=== PATIENT | female | born 1930 | race Caucasian/White ===

== ENCOUNTER 2017-12-13 14:55 | Inpatient (IN) | payer MEDICARE ==
[2017-12-13 15:28] LABS: Hemoglobin 6.9 g/dL (12.0-16.0); Mean Corpuscular HGB CONC 29.5 g/dL (32.0-36.0); Mean Corpuscular Hemoglobin 21.3 pg (27.0-31.0); Mean Corpuscular Volume 72.2 fl (81.0-99.0); Mean Platelet Volume 7.1 fL (7.4-10.4); Platelet Count 520 thou/uL (130-400); Red Blood Cell (RBC) Count 3.24 mill/uL (4.20-5.40); White Blood Cell (WBC) Count 18.4 thou/uL (4.8-10.8)
[2017-12-13 15:32] LABS: INR-International Normal Ratio 1.2; PTT 26.7 SEC (22.9-36.1); Prothrombin Time 15.2 SEC (12.0-14.7)
[2017-12-13] MEDS ORDERED: Fentanyl 100 MCG/2 ML VIAL ONE ×2 (15:33→15:35)
--- NOTE | 2017-12-13 15:37 | RAD ---
TWO VIEWS RIGHT TIBIA AND FIBULA 12/13/17 HISTORY: Trauma, fall, leg deformity. AP and lateral views right tibia and fibula demonstrate oblique fractures involving the proximal port ion of the right fibular diaphysis. There is also comminuted fracture involving the proximal diaphysi s of the right tibia. There is lateral angulation of the distal fracture fragments. IMPRESSION: Fracture and displacement of the proximal right fibula and tibia. The tibial fracture appears to be c omminuted. POS: [facility]
--- NOTE | 2017-12-13 15:38 | RAD ---
HISTORY: Fall and leg deformity. AP VIEW PELVIS: 12/13/17 AP view pelvis is obtained. A large amount of stool is seen in the rectum. Some moderate to severe le ft hip osteoarthritic changes seen. Vascular calcifications seen in the abdominal aorta and iliac art eries. No evidence of acute pelvic fractures seen. IMPRESSION: Left hip osteoarthritic changes with no evidence of acute pelvic abnormality seen. POS: [facility]
[2017-12-13 15:39] LABS: ALT (SGPT) 8 U/L (8-55); AST (SGOT) 11 U/L (5-34); Albumin 3.6 g/dL (3.4-4.8); Alkaline Phosphatase 136 U/L (40-150); Anion Gap 17 mmol/L (10-20); BUN (Urea Nitrogen) 23 mg/dL (9.8-20.1); Bilirubin, Total 0.2 mg/dL (0.2-1.2); CK (CPK) 53 U/L (29-168); Calc. Creatinine Clearance 0 mL/min (70-130); Calcium 8.9 mg/dL (7.8-10.44); Carbon Dioxide 21 mmol/L (23-31); Chloride 106 mmol/L (98-107); Estimated GFR-MDRD 40; Globulin 3.1 g/dL (2.4-3.5); Glucose 371 mg/dL (83-110); Potassium 5.1 mmol/L (3.5-5.1); Protein, Total 6.7 g/dL (6.0-8.3); Sodium 139 mmol/L (136-145)
[2017-12-13 15:46] LABS: #Basophils 0.1 thou/uL (0.0-0.2); #Eosinphils 0.5 thou/uL (0.0-0.7); #Lymphocytes 2.5 thou/uL (1.20-3.40); #Monocytes 1.4 thou/uL (0.11-0.59); #Neutrophils 13.9 thou/uL (1.40-6.50); %Basophils 0.6 % (0.0-1.0); %Eosinophils 2.6 % (0.0-10.0); %Lymphocytes 13.4 % (21.0-51.0); %Monocytes 7.5 % (0.0-10.0); %Neutrophils 75.8 % (42.0-75.0); Anisocytosis SLIGHT = 6-15 cells (100X) (0-5/hpf); Hypochromia SLIGHT = 6-15 cells (100X) (0-5/hpf); MDiff Complete? YES; Microcytosis SLIGHT = 6-15 cells (100X) (0-5/hpf); PLT Morphology Comment Appears Increased
[2017-12-13 15:46] LABS: CKMB 1.7 ng/mL (0-6.6); Troponin I Less than 0.010 ng/mL (< 0.028)
--- NOTE | 2017-12-13 16:08 | RAD ---
SINGLE VIEW OF THE CHEST: 12/13/17 COMPARISON: 08/27/11. HISTORY: Fall with right leg deformity. FINDINGS: Single view of the chest shows a cardiomediastinal silhouette which is upper limits of normal in size with atherosclerotic calcifications in the aorta. There is no evidence of consolidation, mass or ple ural effusion. Degenerative changes are seen in the spine. IMPRESSION: No evidence of acute cardiopulmonary disease. POS: [facility]
[2017-12-13 16:38] LABS: Bilirubin Negative (Negative); Blood, Urine Small (Negative); Glucose, Urine (Dipstick) >=1000 mg/dL (Negative); Leukocyte Trace (Negative); Nitrite Positive (Negative); Protein, Urine (Dipstick) Trace mg/dL (Neg-Trace); Urobilinogen 0.2 mg/dL (0.2-1.0); pH, Urine 5.5 (5.0-9.0)
[2017-12-13 16:40] LABS: Clarity Cloudy (Clear)
[2017-12-13 16:41] LABS: Specific Gravity, Urine 1.025 (1.002-1.036)
[2017-12-13 16:55] LABS: Squamous Epithelial 0-3 HPF (0-3); WBC/HPF 21-50 HPF (0-3)
[2017-12-13 16:56] LABS: Bacteria/HPF 3+ HPF (None Seen); Hyaline Casts/LPF 0-3 HYALINE CAST LPF (0-3 Hyaline)
--- NOTE | 2017-12-13 18:07 | RAD ---
TWO VIEWS RIGHT TIBIA AND FIBULA 12/13/17 COMPARISON: 12/13/17 at 3 p.m. HISTORY: Splint placement for tibia and fibula fractures. FINDINGS: two views of the right tibia/fibula were performed. There are fractures of the proximal aspect of the tibia and fibula which are spiral in nature. There is improved alignment of the fractures compared t o the other exam. Surrounding soft tissue swelling is seen. An overlying splint obscures fine bony an d soft tissue edema. There is moderate degenerative change in the right knee. IMPRESSION: Right proximal tibia and fibula fractures. POS: [facility]
[2017-12-13] MEDS ORDERED: Ondansetron HCl/PF 4 MG/2 ML Vial IVP PRN (19:52)
[2017-12-13] MEDS ORDERED: Morphine 4 MG/ML VIAL SLOW IVP PRN (19:52)
[2017-12-13] MEDS ORDERED: cefTRIAXone\\ROCEPHIN 1 GM in Sodium Chloride 0.9% 100 ML IVPB SCH (19:52)
[2017-12-13] MEDS ORDERED: hydrALAZINE 20 MG/ML VIAL SLOW IVP PRN (19:52)
[2017-12-13] MEDS ORDERED: Dextrose 50% Abboject 50 ML SYRINGE SLOW IVP PRN ×2 (19:52)
[2017-12-13] MEDS ORDERED: Ondansetron ODT 4 MG TAB PO PRN (19:52)
[2017-12-13] MEDS ORDERED: Dextrose 5% in Water 1,000 ML IV PRN (19:52)
[2017-12-13] MEDS ORDERED: Nystatin Powder 15 GM BOT TOP PRN (19:52)
[2017-12-13 20:41] LABS: Magnesium 1.8 mg/dL (1.6-2.6); Phosphorus 3.8 mg/dL (2.3-4.7)
--- NOTE | 2017-12-13 20:54 | HP ---
DATE OF ADMISSION: 12/13/2017 REQUESTING PHYSICIAN: Swapnil Mcdaniel M.D. ATTENDING SURGEON: Ally Summers M.D. CONSULTATIONS: Orthopedics, Dr. Harding. HISTORY OF PRESENT ILLNESS: The patient is an 87-year-old woman who withstood a ground lev el fall. She reportedly has a right-sided deficit from a CVA. Previously, it is extremely weak on t he right side. The patient was attempting to get off of her bed when she fell on her right side. Th e patient was brought to the emergency department by ground EMS with a chief complaint of right lower extremity deformity. The patient underwent evaluation and examination, and was noted to have a righ t proximal tibia and fibula fracture. Also, she was noted to have urinary tract infection, elevated white blood cell count, anemia, and was in atrial fibrillation that the daughter said was not new. A t which time, we were asked to admit the patient for admission and orthopedic evaluation and of cours e medical management of these problems. ALLERGIES: JAY INHIBITORS, CODEINE, IODINE, and MORPHINE. Of note, the patient received 2 doses of fentanyl without any type of reaction. CURRENT MEDICATIONS: The daughter does not have her list with her. PAST MEDICAL HISTORY: Atrial fibrillation, type 2 diabetes, hypertension, stroke in 1998 with right- sided deficit and aphasia. The patient was reportedly wheelchair bound, but can stand to transfer. PAST SURGICAL HISTORY: Cholecystectomy, right ankle ORIF. PSYCHIATRIC HISTORY: Depression. SOCIAL HISTORY: The patient has no history of alcohol, drug or tobacco use, and currently lives at [facility] with her daughter. REVIEW OF SYSTEMS: Ten-point review of systems is negative as otherwise stated. PHYSICAL EXAMINATION: VITAL SIGNS: Blood pressure 127/65, heart rate 92, respirations 20, temperature is 98.1, and oxygen saturation is 98% on room air. GENERAL: The patient is lying on the bed. She will follow very simple commands, primarily utilizing her left upper extremity. She is nonverbal and according to the daughter, this is her baseline. HEENT: Head is normocephalic, atraumatic. Eyes are PERRLA bilaterally. Ears are atraumatic without discharge. Nose is atraumatic without discharge. Oropharynx is clear. NECK: Nontender. Trachea is midline. No JVD. CHEST: Has scattered rhonchi bilaterally with moderate inspiratory and expiratory effort. HEART: Irregularly irregular consistent with her atrial fibrillation. Her conduction rate varies be tween 80 and 130, this appeared to be primarily due to pain. ABDOMEN: Soft, flat, nontender with hypoactive bowel sounds. Pelvis is stable. EXTREMITIES: Bilateral upper extremities are neurovascularly intact. The right upper extremity is h eld in a semi-flexed position at the elbow. Right lower extremity shows swelling and slight rotation at the proximal tibia and fibula, but shows a capillary refill of less than 3 seconds and a distal p ulse of 1+. Left lower extremity shows capillary refill less than 3 seconds and 2+ pulses. LABORATORY FINDINGS: White blood cell count 18.4, hemoglobin 6.9, hematocrit 23.4, platelets 520. B METAL COATER 348, CK 53, CK-MB 1.7, troponin less than 0.010. Sodium 139, potassium 5.1, chloride 106, CO2 of 21, BUN 23, creatinine 1.28, glucose 371. LFTs are unremarkable. INR 1.2, PTT 15.2. RADIOGRAPHS: AP chest shows no evidence of acute pulmonary disease. Views of the right tib-fib show s a fracture and displacement of the proximal right fibula and tibia. The tibial fracture appears to be comminuted. There are two views post-reduction, status post splinting, which showed improved ali gnment of the same fractures. AP pelvis shows left hip osteoarthritic changes with no evidence of ac [place] pelvic abnormality. ASSESSMENT: 1. Status post ground level fall. 2. Closed comminuted proximal right tibia and fibula fracture. 3. Urinary tract infection. 4. Anemia. 5. History of cerebrovascular accident with right-sided deficit and aphasia. 6. Atrial fibrillation with variable rate. 7. History of hypertension. 8. Hyperglycemia. PLAN: Plan will be to admit the patient to the Telemetry Service. The patient was receiving 1 unit of packed red blood cells in the emergency department. The patient also received Rocephin. The gaurav ent was placed in a knee immobilizer for splinting of her fracture. The patient was seen in the [facility] department by Dr. Harding, due to the patient's mobility and significant comorbidities, she will not have surgery and this was discussed with the family. The patient will be placed on sliding scal e insulin and we will monitor her labs again in the morning. The assessment, evaluation, examination, laboratory and radiographic findings were all discussed with Dr. Summers in the emergency department.
[2017-12-13] MEDS: Senokot S 8.6-50 MG TAB PO SCH (22:07)
[2017-12-13] MEDS: Sodium Chloride 0.9% 1,000 ML IV SCH (22:08)
[2017-12-13] MEDS: Famotidine 20 MG TAB PO SCH (22:26)
[2017-12-13] MEDS: Acetaminophen 1,000 MG in Premix Bag 1 BAG IVPB SCH (22:29)
[2017-12-13] MEDS ORDERED: Gabapentin 300 MG CAP PO SCH (23:15)
[2017-12-13] MEDS: Insulin Regular 300 UNITS/3 ML VIAL SC PRN (23:35)
[2017-12-14 00:57] VITALS: BMI 29.9
--- NOTE | 2017-12-14 01:13 | HP ---
ADDENDUM: This is an addendum to the H and P dictated by Paulo Kimble, the details of which I have confirmed. Fo r full details, please see his report and shorts. HISTORY OF PRESENT ILLNESS: Ms. Box is an 87-year-old woman who is nonambulatory due to a stroke w ith right hemiparesis. She is able to stand to transfer, however, and when she dropped her viable on the ground earlier today, she thought she could reach over and pick it up; however, her right leg we nt out from underneath her and she fell, breaking her right tibia and fibula. She denies any other i njuries or pain anywhere except for her right leg. She has no amnesia to the events and was not knoc ked out. She has multiple medical problems including the aforementioned stroke and hemiparesis. She has atrial fibrillation, frequent UTIs, diabetes, hypertension. PAST SURGICAL HISTORY: Includes ankle surgery and cholecystectomy in the past. She has multiple adv erse drug reactions to JAY INHIBITORS, CODEINE, IODINE, and MORPHINE, but tolerated fentanyl in the e mergency room. She has expressive aphasia, but does seem to understand the questions and respond, al beit with difficulty. PHYSICAL EXAMINATION: A complete physical examination was performed by myself. She is in a brace fo r her right lower extremity and appears comfortable. No other areas were identified with stigmata of trauma or tenderness to palpation. She does have an irregularly irregular heart rate and her periph eral pulses are diminished. I have reviewed her imaging and agree with the written report. She has a proximal tibia fibula fracture on the right. No abnormalities seen on chest and pelvis. LABORATORY DATA: Reviewed. Her white count is elevated at 18,000 and her UA has positive nitrites a nd trace leukocyte esterase and 21-50 white cells and 3+ bacteria. Glucose is 371. BUN and creatini ne are 23 and 1.28. BNP is mildly elevated at 348. LFTs are normal. On review of past BUN and crea tinine, her creatinine has always been below 1 according to her labs. ASSESSMENT: Proximal right tibia and fibula fractures for which Orthopedics is planning nonoperative management since the patient is nonambulatory. She has multiple other medical issues, which may pro long her hospitalization. She has some acute renal insufficiency and appears to have a UTI. She has been started on antibiotics for this empirically. Her white count is elevated, but she is not clini perry septic. Her daughter states that usually when she gets UTI, she starts to hallucinate, but her mental status has been stable. Urine culture has been ordered and is pending. Palliative care and case management has been consulted as have PT and OT. Her hematocrit was significantly lower than he r baseline at 23 and she is being transfused. For this, the etiology of her anemia is not clear. Sh e denies melena or hematochezia and there is no evidence of significant traumatic blood loss, so I crump spect that this is chronic. Her last H and H was almost a year ago and was 12.5 and 38.4. We may ve ry well opt to get medicine involved in this patient's case since she has several medical issues and her trauma is not likely to be the controlling factor and management for discharge.
--- NOTE | 2017-12-14 01:53 | CON ---
DATE OF CONSULTATION: 12/13/2017 REASON FOR CONSULTATION: Right tib-fib fractures. HISTORY OF PRESENT ILLNESS: She is a pleasant woman who lives with her daughter at home. She was st anding to transfer. She is a nonambulator. She twisted her leg and fell causing a right tibia defor mity. PAST MEDICAL HISTORY: Recorded in the chart. ALLERGIES TO MEDICATIONS: Recorded in the chart. Significant for CODEINE, MORPHINE. PHYSICAL EXAMINATION: Shows elderly woman who is in no distress. Her lungs are very diminished. Aby joy has no palpable pulse in right leg. She has an abrasion over her medial malleolus where there is a screw from a previous ORIF. She has scars from previous ORIF of the ankle. Radiographs show oblique fracture of the proximal third of the tibia and fibula, which appears to be undisplaced. She also has previous ORIF of the ankle, which healed very poorly and bone on bone arth ritis of the right leg. ASSESSMENT: Proximal third, middle third junction tibia fracture and nonambulator with history of st roke and paralysis on the right side, she only stands for pivot transfer. She has very poor bone sean lity. She has diabetes. She has no circulation. She is also at very poor health due to congestive heart failure, diabetes, urinary tract infection as well as cerebrovascular accident. Plans for nono perative treatment because surgery risk is very high with very little potential benefits. This was d iscussed with the daughter. We are going to try to treat her with a removable splint because of her skin conditions and her lack of sensation of foot, very concerned about breakdown inside a cast.
[2017-12-14] MEDS ORDERED: Prevnar 13-Val Conj/PF 0.5 ML SYRINGE IM ONE (02:00)
[2017-12-14] MEDS: Acetaminophen 1,000 MG in Premix Bag 1 BAG IVPB SCH ×4 (02:44→20:17)
[2017-12-14 05:40] LABS: Anion Gap 11 mmol/L (10-20); BUN (Urea Nitrogen) 25 mg/dL (9.8-20.1); Calc. Creatinine Clearance 47 mL/min (70-130); Calcium 8.4 mg/dL (7.8-10.44); Carbon Dioxide 24 mmol/L (23-31); Chloride 109 mmol/L (98-107); Estimated GFR-MDRD 47; Glucose 132 mg/dL (83-110); Magnesium 1.8 mg/dL (1.6-2.6); Phosphorus 3.5 mg/dL (2.3-4.7); Potassium 4.4 mmol/L (3.5-5.1); Sodium 140 mmol/L (136-145)
[2017-12-14 06:05] LABS: Band 1 % (5-11); Hypochromia SLIGHT = 6-15 cells (100X) (0-5/hpf); Lymphocytes 31 % (21-51); MDiff Complete? YES; Mean Corpuscular HGB CONC 31.4 g/dL (32.0-36.0); Mean Corpuscular Hemoglobin 24.3 pg (27.0-31.0); Mean Corpuscular Volume 77.4 fl (81.0-99.0); Mean Platelet Volume 7.9 fL (7.4-10.4); Microcytosis SLIGHT = 6-15 cells (100X) (0-5/hpf); Monocytes 15 % (0-10); Neutrophil 53 % (42-75); Platelet Count 369 thou/uL (130-400); RBC Distribution Width 17.7 % (11.5-14.5); Red Blood Cell (RBC) Count 3.29 mill/uL (4.20-5.40); White Blood Cell (WBC) Count 11.4 thou/uL (4.8-10.8)
[2017-12-14] MEDS: Polyethylene Glycol 3350 17 GM Packet PO SCH ×2 (08:22→08:24)
[2017-12-14] MEDS: Senokot S 8.6-50 MG TAB PO SCH ×2 (08:22→20:17)
[2017-12-14] MEDS: Gabapentin 300 MG CAP PO SCH ×2 (08:22→20:17)
[2017-12-14] MEDS: Sodium Chloride 0.9% 1,000 ML IV SCH (09:15)
--- NOTE | 2017-12-14 12:00 | RAD ---
AP VIEW CHEST: DATE: 12/14/17. COMPARISON: Comparison is made to a previous exam from 12/13/17. FINDINGS: AP view chest demonstrates EKG leads seen over the chest. Ectasia of the aorta is seen. Mild pulmon froilan vascular congestion is seen. No evidence of effusions, pneumonia, or pneumothorax is seen. IMPRESSION: Ectasia of the aorta. Otherwise, unremarkable AP view chest. POS: [facility]
[2017-12-14] MEDS: Insulin Regular 300 UNITS/3 ML VIAL SC PRN ×3 (12:02→20:17)
--- NOTE | 2017-12-14 12:15 | PRG ---
DATE OF SERVICE: 12/14/2017 SUBJECTIVE: This is an 87-year-old female who is a non-ambulator with multiple comorbidities who suf fered a ground-level fall yesterday with a right proximal tib/fib displaced fracture. She was placed in a knee immobilizer for comfort. She has been deemed nonoperative due to comorbidities and non-am bulation status. She is seen today at bedside with Dr. Harding. The patient's family at bedside repo rts that she has been comfortable. Otherwise, no new events. OBJECTIVE: VITAL SIGNS: Temperature 98.3, pulse of 88, respiratory rate 16, blood pressure 108/64. GENERAL: The patient is awake and alert. She is pleasant and cooperative with exam. Family at beds slim. EXTREMITIES: The right lower extremity was examined today. There is a knee immobilizer intact. Her leg is externally rotated. Knee immobilizer was removed and reapplied for comfort reasons. Family was instructed on this. The patient appears comfortable. ASSESSMENT AND PLAN: Right proximal tibial/fibula fracture with displacement. PLAN: We will continue nonoperative care. The patient has a previous CVA with residual right-sided deficits. She is a non-ambulator that will not be bearing weight on this extremity. The patient's f amily has been instructed on comfort care to the right lower extremity. She will follow up with Dr. Harding in the office in 2 months for reevaluation.
[2017-12-14] MEDS ORDERED: Aspirin 81 mg Enteric Coated Tablet PO SCH (12:45)
[2017-12-14] MEDS ORDERED: Magnesium 2 GM/NS 0.9% 100 ML 2 GM in Premix Bag 1 BAG IVPB SCH ×4 (16:00)
[2017-12-14] MEDS ORDERED: cefTRIAXone\\ROCEPHIN 1 GM, Syringe 0.4 ML in Sterile Water 9.6 ML SLOW IVP SCH (17:00)
--- NOTE | 2017-12-14 17:12 | PRG ---
DATE OF SERVICE: 12/14/2017 SUBJECTIVE: The patient is hospital day #2 status post ground level fall, in which she sustained a r ight proximal tibia and fibular displaced fracture. The patient due to her multiple comorbidities to include a right-sided deficit from a CVA and advanced age, we will be treated conservatively and non operatively by the Orthopedic Service. The patient's fractures being treated in a knee immobilizer, which this morning was adjusted and refit by the Orthopedic team. The patient had been initially erika jerardo here on the telemetry unit because she was in atrial fibrillation with rapid ventricular response , most likely due to her dehydration and anemia. The patient was given 1 unit of blood yesterday in the Emergency Department and had IV hydration overnight. The patient was rate controlled. She jovita nued to be in her baseline atrial fibrillation. There were no other events noted. PHYSICAL EXAMINATION: VITAL SIGNS: Temperature is 98.3, heart rate 88, blood pressure 108/64, respirations 16, and oxygen saturation 93% on room air. GENERAL: The patient is sleeping in bed in the telemetry unit. She will open her eyes when verbally stimulated, but otherwise the patient is resting comfortably, does not appear in any distress. LUNGS: Clear to auscultation with moderate inspiratory and expiratory effort. Heart is irregularly irregular consistent with her atrial fibrillation. ABDOMEN: Soft, flat, nontender and with active bowel sounds. EXTREMITIES: Neurovascularly intact x4. LABORATORY DATA: This morning, white blood cell count 11.4, hemoglobin 8.0, hematocrit 25.5, platele ts 369. Sodium 140, potassium 4.4, chloride 109, CO2 of 24, BUN 25, creatinine 1.10, glucose 132, ma gnesium 1.8, phosphorus 3.5. Chest x-ray shows an unremarkable AP view of the chest with some quest ionable mild pulmonary vascular congestion. ASSESSMENT AND PLAN: 1. Status post ground level fall. 2. Right proximal tibia and fibular fracture treated nonoperatively, immobilized in a knee immobiliz er. 3. Urinary tract infection being treated with ceftriaxone. 4. Atrial fibrillation with rapid ventricular response, rate now controlled. 5. Anemia, resolved. Plan will be to continue supportive care and await placement decision. The patient is also going to be evaluated. The family will be consulted by palliative care and we will await their final placemen t decision. The patient will be moved to the surgical floor. We will discontinue her IV fluids and also have speech evaluate the patient to ensure that she is not having any other changes that need to be addressed.
[2017-12-14] MEDS: Famotidine 20 MG TAB PO SCH (20:17)
[2017-12-14] MEDS ORDERED: Gabapentin 300 MG CAP PO SCH (21:00)
[2017-12-15 04:30] LABS: #Basophils 0.1 thou/uL (0.0-0.2); #Eosinphils 0.6 thou/uL (0.0-0.7); #Lymphocytes 2.5 thou/uL (1.20-3.40); #Monocytes 1.7 thou/uL (0.11-0.59); %Basophils 0.8 % (0.0-1.0); %Eosinophils 5.2 % (0.0-10.0); %Lymphocytes 21.2 % (21.0-51.0); %Monocytes 14.2 % (0.0-10.0); %Neutrophils 58.7 % (42.0-75.0); Hemoglobin 8.8 g/dL (12.0-16.0); Mean Corpuscular HGB CONC 32.1 g/dL (32.0-36.0); Mean Corpuscular Hemoglobin 24.8 pg (27.0-31.0); Mean Corpuscular Volume 77.1 fl (81.0-99.0); Mean Platelet Volume 7.1 fL (7.4-10.4); Platelet Count 367 thou/uL (130-400); RBC Distribution Width 17.6 % (11.5-14.5); Red Blood Cell (RBC) Count 3.54 mill/uL (4.20-5.40)
[2017-12-15 04:56] LABS: Anion Gap 11 mmol/L (10-20); BUN (Urea Nitrogen) 22 mg/dL (9.8-20.1); Calc. Creatinine Clearance 48 mL/min (70-130); Calcium 8.4 mg/dL (7.8-10.44); Carbon Dioxide 24 mmol/L (23-31); Chloride 107 mmol/L (98-107); Estimated GFR-MDRD 48; Glucose 144 mg/dL (83-110); Magnesium 2.2 mg/dL (1.6-2.6); Phosphorus 3.2 mg/dL (2.3-4.7); Potassium 4.2 mmol/L (3.5-5.1); Sodium 138 mmol/L (136-145)
[2017-12-15] MEDS: Insulin Regular 300 UNITS/3 ML VIAL SC PRN ×3 (06:13→18:18)
[2017-12-15] MEDS: Nitrofurantoin Monohyd/M-Cryst 100 MG CAP PO SCH ×2 (08:09→21:12)
[2017-12-15] MEDS: Aspirin 81 mg Enteric Coated Tablet PO SCH (08:09)
[2017-12-15] MEDS: Gabapentin 300 MG CAP PO SCH ×2 (08:09→21:12)
[2017-12-15] MEDS: Polyethylene Glycol 3350 17 GM Packet PO SCH (08:17)
[2017-12-15] MEDS: Senokot S 8.6-50 MG TAB PO SCH ×2 (08:17→21:14)
[2017-12-15] MEDS ORDERED: Amiodarone 200 MG TAB PO SCH (09:00)
[2017-12-15] MEDS ORDERED: Metoprolol Tartrate 25 MG TAB PO SCH (10:30)
[2017-12-15] MEDS: Enoxaparin Sodium 30 MG/0.3 ML SYRINGE SC SCH (11:03)
[2017-12-15] MEDS: traMADol HCl 50 MG TAB PO SCH ×3 (11:04→23:28)
[2017-12-15] MEDS: Acetaminophen 500 MG TAB PO SCH ×4 (11:04→23:28)
--- NOTE | 2017-12-15 11:52 | PRG ---
DATE OF SERVICE: 12/15/2017 ATTENDING PHYSICIAN: Bobby Mcgee D.O. SUBJECTIVE: Ms. Box is an 87-year-old female who was admitted on 12/13/2017 after suffering a grou nd level fall resulting in a right proximal tibia and fibular fracture. Upon admission, she was also noted to have urinary tract infection with elevated white blood cell count, anemia and was also in a trial fibrillation, which she has a history of. Orthopedic surgery was consulted for her right leg f racture and they recommended nonoperative treatment given high surgical risk with little potential be nefit. The patient's injury is being treated with removable splint. The patient was also started on metoprolol succinate 12.5 mg daily for rate control. Overnight, however, she was tachycardic. EKG this morning revealed she was in atrial fibrillation with RVR with heart rate to 145. The patient wa s started on a loading dose of amiodarone 400 mg. However, this was soon discontinued per instructio n from Dr. Mcgee. Patient did receive one dose. Her only complaint this morning is some pain which is worse with movement and limiting her ability to do physical therapy. OBJECTIVE: VITAL SIGNS: BP 131/69, heart rate 145, temperature 98.0, respirations 18, O2 sat 95% on room air. GENERAL APPEARANCE: The patient is an elderly adult female with obvious right-sided hemiparesis. Sh e is resting comfortably in bed. She does not appear to be in any acute distress. HEENT: Normocephalic and atraumatic with right-sided weakness and hemiparesis noticeable with speech . RESPIRATORY: Breath sounds are clear to auscultation bilaterally. CARDIOVASCULAR: She has an irregularly irregular rhythm with tachycardia. ABDOMEN: Soft, nontender, nondistended. She has active bowel sounds. EXTREMITIES: She is neurovascularly intact x4 with right-sided weakness. LABORATORY DATA AND IMAGING DATA: Significant for decreased white blood cell count. Today, her whit e blood cells are 12.0 down from 18.4 on 12/13/2017. Her hemoglobin and hematocrit are also stable a t 8.8 and 27.3 respectively. This is up from 8.0 and 25.5 yesterday. Chemistry: Sodium 138, potass ium 4.2, chloride 107, bicarbonate 24, BUN 22, creatinine 1.08, glucose 144, calcium 8.4, phosphorus 3.2, and magnesium 2.2. There are no images to review today. ASSESSMENT: 1. Status post ground level fall. 2. Right proximal tibia and fibular fracture, nonoperative. 3. Urinary tract infection. 4. Atrial fibrillation with rapid ventricular response. 5. Anemia. PLAN: 1. Removal of splint for right proximal tibia and fibular fracture. 2. Continue treatment with Macrobid for urinary tract infection. 3. We will continue to treat her atrial fibrillation with rate control. The patient did receive 400 mg dose of amiodarone this morning as well as 12.5 mg dose of metoprolol succinate. For this reason , further metoprolol was held. Will be started on 25 mg metoprolol tartrate b.i.d. starting this juan manuel pallavi. In the meantime, we will do frequent vital signs checks to make sure that her heart rate is no t getting too low after both amiodarone and metoprolol. 4. Anemia, currently stable after receiving 2 units of blood on 12/13/2017. We will continue to lynne ck hemoglobin and hematocrit and transfuse if her hemoglobin and hematocrit less than 7/21. 5. Palliative Care consult today. 6. Case management following for discharge planning. Patient will likely discharge to [facility] bed. This patient was seen and examined along with Dr. Bobby Mcgee on rounds who agreed with assessment and plan.
[2017-12-15] MEDS: Ferrous Sulfate 325 MG TAB PO SCH (17:34)
[2017-12-15] MEDS: Ascorbic Acid 500 mg Chewable Tablet PO SCH (17:34)
[2017-12-15] MEDS: Famotidine 20 MG TAB PO SCH (21:04)
[2017-12-15] MEDS: Metoprolol Tartrate 25 MG TAB PO SCH (21:12)
--- NOTE | 2017-12-15 23:21 | PRG ---
DATE OF SERVICE: 12/15/2017 SUBJECTIVE: The patient is hospital day #3 status post ground level fall in which she sustained a ri ght proximal tibia and fibula fracture. The patient also was noted to have a urinary tract infection and has a history of paroxysmal atrial fibrillation; which upon admission, was not rate controlled. The patient received 1 unit of blood and the following 24 hours, she was rate controlled. This even ing, her heart rate once again was elevated. Her medications were adjusted to include her beta-block er which seems to slow her rate down to the 90s-105s the maximum. Otherwise, the patient has not had any other issues. She denies chest pain and is tolerating a diet. The patient is awaiting placemen t. Her fracture is being treated nonoperatively and is currently immobilized in a knee immobilizer. PHYSICAL EXAMINATION: VITAL SIGNS: Temperature is 97.6, heart rate 104, blood pressure 110/65, oxygen saturation is 90 on room air. GENERAL: The patient is resting comfortably in bed. She is currently asleep and appears to be in no distress. LUNGS: Clear to auscultation bilaterally. HEART: Irregularly irregular, consistent with her atrial fibrillation. ABDOMEN: Soft and flat with hypoactive bowel sounds. EXTREMITIES: Show capillary refill less than 3 seconds and pulses are 2+. Her right knee immobilize r appears to be in place adequately. ASSESSMENT AND PLAN: 1. Status post ground level fall. 2. Right proximal tibia and fibular fracture. 3. Urinary tract infection. 4. Atrial fibrillation with variable ventricular response. Plan will be to continue supportive care. Currently, we will make no adjustments to her cardiac medi cations. She is on the appropriate antibiotics for her urinary tract infection and we will repeat la bs in the morning and await final placement decision.
[2017-12-16] MEDS: Acetaminophen 500 MG TAB PO SCH ×2 (04:57→11:26)
[2017-12-16] MEDS: Insulin Regular 300 UNITS/3 ML VIAL SC PRN ×2 (06:20→12:39)
[2017-12-16 06:26] LABS: Calcium 8.8 mg/dL (7.8-10.44)
[2017-12-16 06:27] LABS: Band 1 % (5-11); Eosinophils 5 % (0-10); Hemoglobin 8.6 g/dL (12.0-16.0); Hypochromia SLIGHT = 6-15 cells (100X) (0-5/hpf); Lymphocytes 13 % (21-51); MDiff Complete? YES; Mean Corpuscular HGB CONC 31.3 g/dL (32.0-36.0); Mean Corpuscular Hemoglobin 24.3 pg (27.0-31.0); Mean Corpuscular Volume 77.8 fl (81.0-99.0); Mean Platelet Volume 7.3 fL (7.4-10.4); Monocytes 10 % (0-10); Neutrophil 71 % (42-75); Platelet Count 386 thou/uL (130-400); RBC Distribution Width 18.6 % (11.5-14.5); Red Blood Cell (RBC) Count 3.52 mill/uL (4.20-5.40); White Blood Cell (WBC) Count 12.8 thou/uL (4.8-10.8)
[2017-12-16 06:32] LABS: Anion Gap 13 mmol/L (10-20); BUN (Urea Nitrogen) 17 mg/dL (9.8-20.1); Calc. Creatinine Clearance 43 mL/min (70-130); Carbon Dioxide 24 mmol/L (23-31); Chloride 106 mmol/L (98-107); Estimated GFR-MDRD 42; Glucose 237 mg/dL (83-110); Magnesium 1.9 mg/dL (1.6-2.6); Phosphorus 3.4 mg/dL (2.3-4.7); Potassium 4.5 mmol/L (3.5-5.1); Sodium 138 mmol/L (136-145)
[2017-12-16] MEDS: Ascorbic Acid 500 mg Chewable Tablet PO SCH (06:34)
[2017-12-16] MEDS: Ferrous Sulfate 325 MG TAB PO SCH (06:34)
[2017-12-16] MEDS: Nitrofurantoin Monohyd/M-Cryst 100 MG CAP PO SCH (08:42)
[2017-12-16] MEDS: Senokot S 8.6-50 MG TAB PO SCH (08:42)
[2017-12-16] MEDS: Gabapentin 300 MG CAP PO SCH (08:43)
[2017-12-16] MEDS: Polyethylene Glycol 3350 17 GM Packet PO SCH (08:43)
[2017-12-16] MEDS: Aspirin 81 mg Enteric Coated Tablet PO SCH (08:43)
[2017-12-16] MEDS: Enoxaparin Sodium 30 MG/0.3 ML SYRINGE SC SCH (08:43)
[2017-12-16] MEDS ORDERED: Bisacodyl 10 MG SUPP PR SCH (09:00)
[2017-12-16] MEDS ORDERED: Metoprolol Tartrate 25 MG TAB PO SCH ×2 (10:17→21:00)
[2017-12-16] MEDS: Metoprolol Tartrate 25 MG TAB PO SCH (10:41)
[2017-12-16] MEDS: traMADol HCl 50 MG TAB PO SCH (11:26)
[2017-12-16 15:58] VITALS: BP 107/68; TEMP 97.3
--- NOTE | 2017-12-17 11:32 | DIS ---
DATE OF ADMISSION: 12/13/2017 DATE OF DISCHARGE: 12/16/2017 ADMITTING PHYSICIAN: Dr. Summers. DISCHARGING PHYSICIAN: Dr. Mcgee. ADMISSION DIAGNOSES: 1. Status post ground level fall. 2. Closed-comminuted right proximal tibia and fibular fracture. 3. Urinary tract infection. 4. Anemia. 5. History of cerebrovascular accident with right-sided deficit and aphasia. 6. Atrial fibrillation with variable rate. 7. History of hypertension. 8. Hyperglycemia. PROCEDURES PERFORMED: Knee immobilizer for splinting of her fracture. HOSPITAL COURSE: Ms. Box is an 87-year-old female who suffered a ground level fall, landing on her right side. She was brought to the [facility] by ground EMS where she was eval uated and found to have a right proximal tibia and fibular fracture. She was also noted to have urin froilan tract infection, elevated white blood cell count, anemia, and atrial fibrillation that were repor tedly not a new problem. Orthopedic Surgery was consulted and Trauma Services was asked to admit. T he patient had a splint placed on her right leg. Given the patient's baseline immobility, it was fel t that surgical fixation of her leg would not be beneficial. The patient received 1 unit of packed r ed blood cells for her anemia. She was started on antibiotics for her urinary tract infection. Her atrial fibrillation was managed with beta blockers for rate control. She was discharged to [facility] on 12/16/2017 in stable condition. DISCHARGE MEDICATIONS: Include all of her inpatient medications. For details, see the electronic pa dical record. ACTIVITY INSTRUCTIONS: The patient discharged with orthopedic limitations including knee immobilizer on at all times. NOURISHMENT INSTRUCTIONS: The patient discharged on a diabetic diet. THERAPY INSTRUCTIONS: Physical and occupational therapy at the [facility]. FOLLOWUP: The patient is to follow up with her primary care doctor in 7 days. The patient instructe d to follow up with Dr. Harding in 2 months for new x-rays and re-evaluation.
--- NOTE | 2017-12-21 08:37 | EKG ---
Test Reason : Blood Pressure : / mmHG Vent. Rate : 106 BPM Atrial Rate : 076 BPM P-R Int : 000 ms QRS Dur : 096 ms QT Int : 344 ms P-R-T Axes : 000 -59 078 degrees QTc Int : 456 ms Atrial fibrillation with rapid ventricular response Left axis deviation Abnormal ECG When compared with ECG of 22-AUG-2011 07:38, No significant change was found Confirmed by CANDIDO GARAY, POLLY ([id number]) on 12/21/2017 8:37:17 AM Referred By: CORKY VELA Confirmed By:POLLY REY MD
== END 2017-12-16 16:24 | DRG 563 ==
LOC: ERS 14:55 → 2NO 17:47 → SURG A 12-14 16:36
PROVIDERS: ADMIT Surgery; ATTEND Surgery
PROC: 30233N1 Transfusion of Nonautologous Red Blood Cells into Peripheral Vein, Percutaneous Approach (ICD-10-PCS; principal; 2017-12-13)
DX: S82.101A Unspecified fracture of upper end of right tibia, initial encounter for closed fracture (principal); E11.65 Type 2 diabetes mellitus with hyperglycemia; I48.0 Paroxysmal atrial fibrillation; I69.351 Hemiplegia and hemiparesis following cerebral infarction affecting right dominant side; D64.9 Anemia, unspecified; E86.0 Dehydration; F32.9 Major depressive disorder, single episode, unspecified; I10 Essential (primary) hypertension; N39.0 Urinary tract infection, site not specified; W18.30XA Fall on same level, unspecified, initial encounter; Z88.5 Allergy status to narcotic agent; Z88.8 Allergy status to other drugs, medicaments and biological substances; Z91.041 Radiographic dye allergy status; Z51.5 Encounter for palliative care; Z99.3 Dependence on wheelchair; S82.451A Displaced comminuted fracture of shaft of right fibula, initial encounter for closed fracture
CPT/HCPCS: 36415; 36416; 36430; 51701; 71045; 72170; 80048; 80053; 81003; 81015; 82550; 82553; 83735; 83880; 84100; 84484; 85025; 85610; 85730; 86850; 86900; 86901; 87077; 87086; 87186; 93005; 93010; 94640; 96374; A4216; A4353; G0390; G8978-GP-CN; G8979-GP-CL; G8987-GO-CM; G8988-GO-CK; G8996-GN-CH; G8997-GN-CH; J0131; J0696; J1650; J1815; J3010; J3475; J7620; P9016

== ENCOUNTER 2019-05-01 13:44 | Inpatient (IN) | payer MEDICARE ==
[2019-05-01] MEDS ORDERED: Ondansetron PF 4 MG/2 ML Vial IVP PRN (16:18)
[2019-05-01] MEDS ORDERED: Senokot S 8.6-50 MG TAB PO PRN (16:18)
[2019-05-01] MEDS ORDERED: Ondansetron ODT 4 MG TAB PO PRN (16:18)
[2019-05-01] MEDS ORDERED: Bisacodyl 5 MG TAB PO PRN (16:18)
[2019-05-01] MEDS ORDERED: Calcium Carbonate 500 MG ChewTAB PO PRN (16:18)
[2019-05-01] MEDS ORDERED: Acetaminophen 325 MG TAB PO PRN (16:18)
[2019-05-01] MEDS ORDERED: hydrALAZINE 20 MG/ML VIAL SLOW IVP PRN (16:22)
[2019-05-01] MEDS ORDERED: diphenhydrAMINE 25 MG CAP PO PRN (16:22)
--- NOTE | 2019-05-01 17:29 | PDOC.HHP ---
Hospitalist HPI - History of Present Illness AMS and UTI History of Present Illness: 89 F taken to ED at [facility] for evaluation of AMS and been on Cipro for a UTI for the past 6 days. Daughter at the bedside who is the primary caregiver. Reports her mom has been battling a UTI for over a week but could tell this morning that she was not her normal self, was "not quite there" mentally which is common when she gets a UTI. Ms Box follows commands but daughter gave the history. Ms Box lives at home with her daughter and TIERRA. Daughter provides most care and has a nurse come out 3 times a week. She is bed bound after a tibial fracture in 2018. It was not able to be fixed and she has been unable to bear weight on right leg since the fracture. Wears a brief for bladder incontinence. Is able to transfer to a wheelchair with assistance. Daughter reports that since her mother was given fluids and Rocephin the in the ED at [facility] this morning, patient appears more lucid, more interactive and generally looks better. She will be admitted to the hospital for further management. ED Course: Was given fluids, Rocephin, UA labs taken. WBC 18, HGB 8, Hct 26.2, UA positive for +protein, blood, leukocytes, WBC, Bacteria +3, Dilantin level 2.6 Hospitalist ROS - Review of Systems ROS unobtainable: due to mental status (History provided by daughter, Patient follows commands but does not answer questions) - Exam Eye - other findings: conjunctiva pale ENT: dry oral mucosa Neck: supple, no JVD Heart: RRR, normal peripheral pulses Respiratory: CTAB, normal chest expansion Gastrointestinal: soft, non-tender Extremities: no edema Skin: normal turgor, no lesions Neurological: no weakness Musculoskeletal - other findings: right leg externally rotated Hospitalist H&P A/P - Problem (1) Diabetes mellitus Code(s): E11.9 - TYPE 2 DIABETES MELLITUS WITHOUT COMPLICATIONS Status: Chronic (2) Encephalopathy acute Code(s): G93.40 - ENCEPHALOPATHY, UNSPECIFIED Status: Acute (3) UTI (urinary tract infection) Status: Acute (4) Dehydration Code(s): E86.0 - DEHYDRATION Status: Acute - Plan Plan: Allergies: JAY inhibitors, codeine, iodine, morphine MEDS: need to reconciled. Daughter reports she no longer takes meds for HTN Plan: gentle hydration NS 70ml/hr Rocephin 2gm IVPB q24h Blood and urine cultures Duonebs prn for cough/dyspnea DVT/GI prophylaxis Plan coordinated with Dr. Park
[2019-05-01 17:53] LABS: #Basophils 0.1 thou/uL (0.0-0.2); #Eosinphils 0.7 thou/uL (0.0-0.7); #Lymphocytes 2.6 thou/uL (1.20-3.40); #Monocytes 1.9 thou/uL (0.11-0.59); #Neutrophils 12.7 thou/uL (1.40-6.50); %Basophils 0.8 % (0.0-1.0); %Eosinophils 3.9 % (0.0-10.0); %Lymphocytes 14.6 % (21.0-51.0); %Monocytes 10.3 % (0.0-10.0); %Neutrophils 70.4 % (42.0-75.0); Hemoglobin 8.3 g/dL (12.0-16.0); Mean Corpuscular Hemoglobin 23.5 pg (27.0-31.0); Platelet Count 761 thou/uL (130-400); RBC Distribution Width 16.3 % (11.5-14.5); Red Blood Cell (RBC) Count 3.52 mill/uL (4.20-5.40)
[2019-05-01 18:13] LABS: Anion Gap 14 mmol/L (10-20); BUN (Urea Nitrogen) 19 mg/dL (9.8-20.1); Calc. Creatinine Clearance 0 mL/min (70-130); Calcium 10.7 mg/dL (7.8-10.44); Carbon Dioxide 24 mmol/L (23-31); Chloride 106 mmol/L (98-107); Estimated GFR-MDRD 62; Glucose 115 mg/dL (83-110); Potassium 3.6 mmol/L (3.5-5.1); Sodium 140 mmol/L (136-145)
[2019-05-01] MEDS: cefTRIAXone\\ROCEPHIN 2 GM in Sodium Chloride 0.9% 100 ML IVPB SCH (23:19)
[2019-05-01] MEDS: Sodium Chloride 0.9% 1,000 ML IV SCH (23:20)
[2019-05-02] MEDS: Sodium Chloride 0.9% 1,000 ML IV SCH ×3 (02:24→18:07)
[2019-05-02 04:00] VITALS: BMI 19.8
[2019-05-02 07:15] LABS: Bilirubin Negative (Negative); Blood, Urine 2+ (Negative); Clarity Turbid (Clear); Glucose, Urine (Dipstick) Normal (Negative); Leukocyte 250 Leu/uL (Negative); Nitrite Negative (Negative); Protein, Urine (Dipstick) 100 mg/dL (Neg-Trace); Urobilinogen Normal mg/dL (Less than 2); WBC/HPF Greater than 50 HPF (0-3)
[2019-05-02 07:17] LABS: Bacteria/HPF 1+ HPF (None Seen)
[2019-05-02] MEDS: Famotidine 20 MG TAB PO SCH (08:21)
[2019-05-02] MEDS: Enoxaparin Sodium 40 MG/0.4 ML SYRINGE SC SCH ×2 (08:21→11:14)
[2019-05-02] MEDS ORDERED: Dextrose 5% in Water 1,000 ML IV PRN (09:35)
[2019-05-02] MEDS ORDERED: Insulin Regular 300 UNITS/3 ML VIAL SC PRN (09:35)
[2019-05-02] MEDS ORDERED: Dextrose 50% Abboject 50 ML SYRINGE SLOW IVP PRN (09:35)
[2019-05-02 10:38] LABS: #Basophils 0.1 thou/uL (0.0-0.2); #Eosinphils 0.6 thou/uL (0.0-0.7); #Lymphocytes 1.9 thou/uL (1.20-3.40); #Monocytes 2.1 thou/uL (0.11-0.59); #Neutrophils 15.1 thou/uL (1.40-6.50); %Basophils 0.5 % (0.0-1.0); %Eosinophils 2.9 % (0.0-10.0); %Lymphocytes 9.6 % (21.0-51.0); %Monocytes 10.7 % (0.0-10.0); %Neutrophils 76.4 % (42.0-75.0); Hemoglobin 8.7 g/dL (12.0-16.0); Mean Corpuscular HGB CONC 30.1 g/dL (32.0-36.0); Mean Corpuscular Hemoglobin 22.7 pg (27.0-31.0); Mean Corpuscular Volume 75.6 fL (78.0-98.0); Mean Platelet Volume 7.1 fL (7.4-10.4); Platelet Count 447 thou/uL (130-400); RBC Distribution Width 16.3 % (11.5-14.5); Red Blood Cell (RBC) Count 3.83 mill/uL (4.20-5.40); White Blood Cell (WBC) Count 19.7 thou/uL (4.8-10.8)
[2019-05-02 11:09] LABS: Anion Gap 15 mmol/L (10-20); BUN (Urea Nitrogen) 19 mg/dL (9.8-20.1); Calc. Creatinine Clearance 39 mL/min (70-130); Calcium 10.5 mg/dL (7.8-10.44); Carbon Dioxide 21 mmol/L (23-31); Chloride 109 mmol/L (98-107); Estimated GFR-MDRD 62; Glucose 133 mg/dL (83-110); Potassium 3.7 mmol/L (3.5-5.1); Sodium 141 mmol/L (136-145)
[2019-05-02] MEDS: Insulin Regular 300 UNITS/3 ML VIAL SC PRN ×2 (11:25→17:48)
[2019-05-02] MEDS: Furosemide 20 MG TAB PO SCH (11:27)
--- NOTE | 2019-05-02 11:33 | PDOC.HOSPP ---
- Subjective Subjective: Seen and examined. Nods head yes and no to questions. Denies pain. Breathing well. Sitting up in bed, eating breakfast with assistance from RN. - Objective Vital Signs & Weight: Vital Signs (12 hours) Temp Pulse Resp BP Pulse Ox 05/02/19 08:12 98.2 F 88 20 108/68 95 05/02/19 04:13 97.6 F 88 16 91/49 L 94 L 05/02/19 00:36 99.1 F 96 16 90/55 L 97 Weight Weight 119 lb 0.794 oz I&O: 05/01/19 05/02/19 05/03/19 06:59 06:59 06:59 Output Total 600 Balance -600 Result Diagrams: 05/02/19 10:19 05/02/19 10:19 Additional Labs: Accuchecks 05/02/19 11:23 POC Glucose 198 H Hospitalist ROS - Medication Medications: Active Medications Generic Name Dose Route Start Last Admin Trade Name Freq PRN Reason Stop Dose Admin Enoxaparin Sodium 40 mg 05/02/19 09:00 05/02/19 11:14 Lovenox SC 40 mg 0900 LEE Administration Famotidine 20 mg 05/02/19 09:00 05/02/19 08:21 Pepcid PO 20 mg DAILY LEE Administration Furosemide 20 mg 05/02/19 10:00 05/02/19 11:27 Lasix PO Not Given Q2DAYS LEE Ceftriaxone Sodium 2 gm/ 100 mls @ 200 mls/hr 05/01/19 17:00 05/01/19 23:19 Sodium Chloride IVPB 05/08/19 17:01 Not Given Q24HR [facility] Sodium Chloride 1,000 mls @ 70 mls/hr 05/01/19 16:45 05/02/19 08:23 Normal Saline 0.9% IV Not Given .[id number] [facility] Insulin Human Regular 0 units 05/02/19 09:35 05/02/19 11:25 Humulin R SC 2 unit .MILD SLIDING SCALE PRN Administration Mild Correctional Scale - Exam General Appearance: NAD, awake alert Eye: PERRL Eye - other findings: EOMI ENT: no oropharyngeal lesions, moist mucosa Neck: supple, no JVD Heart: no murmur, no gallops, no rubs Heart - other findings: S1 and S2 present Respiratory: CTAB, no wheezes, no rales, no ronchi Gastrointestinal: soft, non-tender, non-distended, no guarding, no rigidity Extremities: 1+ LE edema Skin: no lesions, no rashes Neurological: CN's grossly intact, normal sensation to touch, no new deficit Musculoskeletal: generalized weakness Psychiatric: oriented to person, flat affect Hosp A/P (1) Sepsis Code(s): A41.9 - SEPSIS, UNSPECIFIED ORGANISM Status: Acute (2) Dehydration Code(s): E86.0 - DEHYDRATION Status: Acute (3) Encephalopathy acute Code(s): G93.40 - ENCEPHALOPATHY, UNSPECIFIED Status: Resolved (4) UTI (urinary tract infection) Status: Acute (5) Diabetes mellitus Code(s): E11.9 - TYPE 2 DIABETES MELLITUS WITHOUT COMPLICATIONS Status: Chronic (6) Fracture of right tibia and fibula Code(s): S82.201A - UNSP FRACTURE OF SHAFT OF RIGHT TIBIA, INIT FOR CLOS FX; S82.401A - UNSP FRACTURE OF SHAFT OF RIGHT FIBULA, INIT FOR CLOS FX Status: Chronic - Plan Plan: Med/ surg Broad spectrum ABX Blood Cx - no growth to date Urine Cx - no growth to date WBC remains elevated, if not downtrending in 24 hours will escalate ABX to nosocomial coverage Afebrile, non toxic appearance Long and short acting insulin for glucose control Continue home meds as able GI and DVT PPX
--- NOTE | 2019-05-02 13:34 | RAD ---
FRONTAL RADIOGRAPH CHEST: Date: 05/02/19 COMPARISON: 05/01/19. HISTORY: Cough. FINDINGS: Stable increased linear interstitial density noted bilaterally. The bones are demineralized. There is atherosclerotic calcification of the aortic arch. There is no pneumothorax, pleural fluid, focal con solidation, or alveolar edema. IMPRESSION: Stable nonspecific interstitial prominence. No focal consolidation or alveolar edema. POS: OFF
[2019-05-02] MEDS: cefTRIAXone\\ROCEPHIN 2 GM in Sodium Chloride 0.9% 100 ML IVPB SCH (17:44)
[2019-05-02] MEDS ORDERED: Insulin Glargine 10 UNITS in Pre-Filled Syringe 1 EACH SC SCH (18:30)
[2019-05-02] MEDS: Gabapentin 300 MG CAP PO SCH (20:20)
[2019-05-03] MEDS ORDERED: Sodium Chloride 0.9% 500 ML IV SCH (00:15)
[2019-05-03] MEDS: Sodium Chloride 0.9% 1,000 ML IV SCH ×3 (03:14→23:34)
[2019-05-03] MEDS: Enoxaparin Sodium 40 MG/0.4 ML SYRINGE SC SCH (08:09)
[2019-05-03] MEDS: Famotidine 20 MG TAB PO SCH (08:09)
[2019-05-03] MEDS: Gabapentin 300 MG CAP PO SCH ×2 (08:09→20:10)
[2019-05-03] MEDS: metFORMIN 500 MG TAB PO SCH (08:11)
[2019-05-03] MEDS: Insulin Regular 300 UNITS/3 ML VIAL SC PRN (10:52)
[2019-05-03 11:20] LABS: Anion Gap 11 mmol/L (10-20); BUN (Urea Nitrogen) 16 mg/dL (9.8-20.1); Calc. Creatinine Clearance 35 mL/min (70-130); Calcium 9.9 mg/dL (7.8-10.44); Carbon Dioxide 22 mmol/L (23-31); Chloride 109 mmol/L (98-107); Estimated GFR-MDRD 56; Glucose 147 mg/dL (83-110); Potassium 3.2 mmol/L (3.5-5.1); Sodium 139 mmol/L (136-145)
[2019-05-03 11:25] LABS: Anisocytosis SLIGHT = 6-15 cells (100X) (0-5/hpf); Band 3 % (5-11); Eosinophils 5 % (0-10); Hemoglobin 8.5 g/dL (12.0-16.0); Hypochromia SLIGHT = 6-15 cells (100X) (0-5/hpf); Lymphocytes 5 % (21-51); MDiff Complete? YES; Mean Corpuscular HGB CONC 30.5 g/dL (32.0-36.0); Mean Corpuscular Hemoglobin 23.1 pg (27.0-31.0); Mean Corpuscular Volume 75.8 fL (78.0-98.0); Mean Platelet Volume 7.1 fL (7.4-10.4); Microcytosis SLIGHT = 6-15 cells (100X) (0-5/hpf); Monocytes 4 % (0-10); Neutrophil 83 % (42-75); Platelet Count 685 thou/uL (130-400); Platelet Morphology Comment Appears Increased; Poikilocytosis SLIGHT = 6-15 cells (100X) (0-5/hpf); RBC Distribution Width 16.2 % (11.5-14.5); Red Blood Cell (RBC) Count 3.69 mill/uL (4.20-5.40); White Blood Cell (WBC) Count 20.5 thou/uL (4.8-10.8)
[2019-05-03] MEDS ORDERED: Potassium Chloride 20 MEQ TAB PO SCH (12:15)
[2019-05-03] MEDS ORDERED: Piperacillin/Tazobactam 2.25 GM in Sodium Chloride 0.9% 100 ML IVPB SCH (13:00)
--- NOTE | 2019-05-03 13:36 | PDOC.HOSPP ---
- Subjective Subjective: Seen and examined. Clinically improving. More interactive and communicates at her baseline per daughter. Denies pain. Breathing well. No acute overnight events. Discussed case at length with daughter at [phone], daughter happy with plan of care. - Objective Vital Signs & Weight: Vital Signs (12 hours) Temp Pulse Resp BP Pulse Ox 05/03/19 11:23 98.1 F 104 H 20 104/57 L 94 L 05/03/19 08:00 97.3 F L 83 20 90/51 L 97 05/03/19 04:00 97.3 F L 83 20 90/51 L 97 05/03/19 03:54 97.5 F L 92 16 108/66 98 Weight Weight 119 lb 0.794 oz I&O: 05/02/19 05/03/19 05/04/19 06:59 06:59 06:59 Intake Total 1720 1355 Output Total 600 200 420 Balance -600 1520 935 Result Diagrams: 05/03/19 10:45 05/03/19 10:45 Additional Labs: Accuchecks 05/03/19 05/03/19 05/02/19 10:39 05:12 21:07 POC Glucose 173 H 77 133 H 05/02/19 17:50 POC Glucose 171 H Hospitalist ROS - Medication Medications: Active Medications Generic Name Dose Route Start Last Admin Trade Name Freq PRN Reason Stop Dose Admin Enoxaparin Sodium 40 mg 05/02/19 09:00 05/03/19 08:09 Lovenox SC 40 mg 0900 LEE Administration Famotidine 20 mg 05/02/19 09:00 05/03/19 08:09 Pepcid PO 20 mg DAILY LEE Administration Furosemide 20 mg 05/02/19 10:00 05/02/19 11:27 Lasix PO Not Given Q2DAYS LEE Gabapentin 300 mg 05/02/19 21:00 05/03/19 08:09 Neurontin PO 300 mg BID LEE Administration Sodium Chloride 1,000 mls @ 70 mls/hr 05/01/19 16:45 05/03/19 03:14 Normal Saline 0.9% IV 1,000 mls .[id number] LEE Administration Insulin Human Regular 0 units 05/02/19 09:35 05/03/19 10:52 Humulin R SC 2 unit .MILD SLIDING SCALE PRN Administration Mild Correctional Scale Metformin HCl 500 mg 05/03/19 09:00 05/03/19 08:11 Glucophage PO 500 mg QAM LEE Administration Phenytoin Sodium 200 mg 05/03/19 09:00 05/03/19 08:11 Dilantin Er PO 200 mg MWF LEE Administration Sertraline HCl 150 mg 05/03/19 09:00 05/03/19 08:09 Zoloft PO 150 mg DAILY LEE Administration - Exam General Appearance: NAD, awake alert Eye: PERRL Eye - other findings: EOMI ENT: no oropharyngeal lesions, moist mucosa Neck: supple Heart: RRR, no murmur, no gallops, no rubs Respiratory: CTAB, no wheezes, no rales, no ronchi, normal chest expansion Gastrointestinal: soft, non-tender, non-distended, normal bowel sounds, no guarding, no rigidity Extremities: 1+ LE edema Skin: no lesions, no rashes Neurological: CN's grossly intact, no new deficit, speech deficit Neurological - other findings: 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401A - UNSP FRACTURE OF SHAFT OF RIGHT FIBULA, INIT FOR CLOS FX Status: Chronic - Plan Plan: Med/ surg WBC not responding, will escalate ABX to nosocomial coverage Start Vancomycin/ Zosyn Blood Cx - no growth to date Urine Cx - no growth to date WBC remains elevated, though Afebrile, non toxic appearance Long and short acting insulin for glucose control Alert and oriented to her baseline per daughter Daughter can be reached at [phone] Patient is full code per daughter Continue home meds as able GI and DVT PPX
[2019-05-03] MEDS: Vancomycin HCl 1 GM in Premix Bag 1 BAG IVPB SCH (15:26)
[2019-05-03] MEDS: Piperacillin/Tazobactam 2.25 GM in Sodium Chloride 0.9% 100 ML IVPB SCH ×2 (17:27→23:14)
[2019-05-03] MEDS: Insulin Glargine 10 UNITS in Pre-Filled Syringe 1 EACH SC SCH (17:28)
[2019-05-04 05:26] LABS: #Basophils 0.1 thou/uL (0.0-0.2); #Eosinphils 0.9 thou/uL (0.0-0.7); #Lymphocytes 2.8 thou/uL (1.20-3.40); #Monocytes 1.8 thou/uL (0.11-0.59); #Neutrophils 11.9 thou/uL (1.40-6.50); %Basophils 0.8 % (0.0-1.0); %Eosinophils 5.3 % (0.0-10.0); %Lymphocytes 15.9 % (21.0-51.0); Hemoglobin 7.8 g/dL (12.0-16.0); Mean Corpuscular HGB CONC 30.7 g/dL (32.0-36.0); Mean Corpuscular Hemoglobin 23.8 pg (27.0-31.0); Mean Corpuscular Volume 77.7 fL (78.0-98.0); Mean Platelet Volume 7.2 fL (7.4-10.4); Platelet Count 670 thou/uL (130-400); RBC Distribution Width 16.3 % (11.5-14.5); Red Blood Cell (RBC) Count 3.27 mill/uL (4.20-5.40); White Blood Cell (WBC) Count 17.5 thou/uL (4.8-10.8)
[2019-05-04 05:28] LABS: Anion Gap 10 mmol/L (10-20); BUN (Urea Nitrogen) 15 mg/dL (9.8-20.1); Calc. Creatinine Clearance 39 mL/min (70-130); Calcium 9.9 mg/dL (7.8-10.44); Carbon Dioxide 23 mmol/L (23-31); Chloride 110 mmol/L (98-107); Estimated GFR-MDRD 63; Glucose 72 mg/dL (83-110); Potassium 3.6 mmol/L (3.5-5.1); Sodium 139 mmol/L (136-145)
[2019-05-04] MEDS: Piperacillin/Tazobactam 2.25 GM in Sodium Chloride 0.9% 100 ML IVPB SCH ×4 (05:37→23:39)
[2019-05-04] MEDS: Sodium Chloride 0.9% 1,000 ML IV SCH (05:37)
[2019-05-04] MEDS: Floranex Packet PO SCH (09:40)
[2019-05-04] MEDS: Enoxaparin Sodium 40 MG/0.4 ML SYRINGE SC SCH (09:40)
[2019-05-04] MEDS: Gabapentin 300 MG CAP PO SCH ×2 (09:41→20:50)
[2019-05-04] MEDS: Famotidine 20 MG TAB PO SCH (09:42)
[2019-05-04] MEDS: metFORMIN 500 MG TAB PO SCH (09:42)
[2019-05-04] MEDS: Furosemide 20 MG TAB PO SCH (09:42)
[2019-05-04] MEDS: Vancomycin HCl 1 GM in Premix Bag 1 BAG IVPB SCH (12:30)
--- NOTE | 2019-05-04 13:58 | PDOC.HOSPP ---
- Subjective Subjective: Seen and examined. Mentation returned to her baseline per daughter. Slept well. Denies pain. Breathing well. Does have chronic sputum and cough per daughter. Tolerating diet. WBC downtrending on broad spectrum ABX. - Objective Vital Signs & Weight: Vital Signs (12 hours) Temp Pulse Resp BP Pulse Ox 05/04/19 11:00 97.5 F L 100 16 106/70 97 05/04/19 08:00 97.5 F L 82 16 132/63 97 05/04/19 03:00 98.1 F 93 16 100/56 L 97 Weight Weight 119 lb 0.794 oz I&O: 05/03/19 05/04/19 05/05/19 06:59 06:59 06:59 Intake Total 1720 2495 Output Total 200 845 Balance 1520 1650 Result Diagrams: 05/04/19 04:40 05/04/19 04:40 Additional Labs: Accuchecks 05/04/19 05/04/19 05/03/19 11:05 05:14 21:03 POC Glucose 70 74 142 H 05/03/19 17:04 POC Glucose 120 H Hospitalist ROS - Review of Systems All other systems reviewed; all pertinent +/- noted in HPI/Subj - Medication Medications: Active Medications Generic Name Dose Route Start Last Admin Trade Name Sloan PRN Reason Stop Dose Admin Acidophilus 1 gm 05/04/19 09:00 05/04/19 09:40 Floranex PO 1 gm DAILY LEE Administration Enoxaparin Sodium 40 mg 05/02/19 09:00 05/04/19 09:40 Lovenox SC 40 mg 0900 LEE Administration Famotidine 20 mg 05/02/19 09:00 05/04/19 09:42 Pepcid PO 20 mg DAILY LEE Administration Furosemide 20 mg 05/02/19 10:00 05/04/19 09:42 Lasix PO 20 mg Q2DAYS LEE Administration Gabapentin 300 mg 05/02/19 21:00 05/04/19 09:41 Neurontin PO 300 mg BID LEE Administration Sodium Chloride 1,000 mls @ 70 mls/hr 05/01/19 16:45 05/04/19 05:37 Normal Saline 0.9% IV 1,000 mls .[id number] LEE Administration Insulin Glargine 10 units/ 0.1 mls @ 0 mls/hr 05/03/19 17:00 05/03/19 17:28 Miscellaneous Medication SC 0.1 mls QPM-WM LEE Administration Piperacillin Sod/Tazobactam 100 mls @ 200 mls/hr 05/03/19 18:00 05/04/19 11: 31 Sod 2.25 gm/ Sodium Chloride IVPB 100 mls Q6HR LEE Administration Vancomycin HCl 1 gm/ Device 200 mls @ 200 mls/hr 05/03/19 13:00 05/04/19 12: 30 IVPB 200 mls 1300 LEE Administration Insulin Human Regular 0 units 05/02/19 09:35 05/03/19 10:52 Humulin R SC 2 unit .MILD SLIDING SCALE PRN Administration Mild Correctional Scale Metformin HCl 500 mg 05/03/19 09:00 05/04/19 09:42 Glucophage PO 500 mg QAM LEE Administration Phenytoin Sodium 200 mg 05/03/19 09:00 05/03/19 08:11 Dilantin Er PO 200 mg MWF LEE Administration Phenytoin Sodium 100 mg 05/02/19 10:00 05/04/19 09:43 Dilantin Er PO 100 mg TUTHSASU LEE Administration Sertraline HCl 150 mg 05/03/19 09:00 05/04/19 09:40 Zoloft PO 150 mg DAILY LEE Administration - Exam General Appearance: NAD, awake alert Eye: PERRL, anicteric sclera Eye - other findings: EOMI ENT: normocephalic atraumatic, no oropharyngeal lesions, moist mucosa Neck: supple, symmetric, no lymphadenopathy Heart: RRR, no murmur, no rubs Respiratory: CTAB, no wheezes, no rales, no ronchi, normal chest expansion Gastrointestinal: soft, non-tender, non-distended, normal bowel sounds, no palpable masses, no guarding, no rigidity Extremities: no edema Skin: no lesions, no rashes Neurological: CN's grossly intact, no new deficit, speech deficit Psychiatric: oriented to person, flat affect Hosp A/P (1) Sepsis Code(s): A41.9 - SEPSIS, UNSPECIFIED ORGANISM Status: Acute (2) Dehydration Code(s): E86.0 - DEHYDRATION Status: Acute (3) Encephalopathy acute Code(s): G93.40 - ENCEPHALOPATHY, UNSPECIFIED Status: Resolved (4) UTI (urinary tract infection) Status: Acute (5) Diabetes mellitus Code(s): E11.9 - TYPE 2 DIABETES MELLITUS WITHOUT COMPLICATIONS Status: Chronic (6) Fracture of right tibia and fibula Code(s): S82.201A - UNSP FRACTURE OF SHAFT OF RIGHT TIBIA, INIT FOR CLOS FX; S82.401A - UNSP FRACTURE OF SHAFT OF RIGHT FIBULA, INIT FOR CLOS FX Status: Chronic - Plan Plan: Med/ surg WBC is now responding, on broad spectrum nosocomial coverage Continue Vancomycin/ Zosyn Blood Cx - no growth to date Urine Cx - no growth to date WBC remains elevated, though Afebrile, non toxic appearance Now with wet lungs and worsening cough, with add chest xray to monitor for volume overload D/c IV fluids Oral intake of fluids May need higher dose of lasix if volume overloaded Long and short acting insulin for glucose control Alert and oriented to her baseline per daughter Daughter can be reached at [phone] Patient is full code per daughter Continue home meds as able GI and DVT PPX
--- NOTE | 2019-05-04 14:43 | RAD ---
PORTABLE CHEST 1 VIEW: Date: 05/04/19 Time: 1420 hours HISTORY: Cough. FINDINGS/IMPRESSION: Comparison made with exam of 05/02/19. The heart size is normal. The aorta is tortuous. There is a mild infiltrate in the right lower lung. Chronic changes are otherwise again seen. A small right pleural effusion may be present. No pneumotho races identified. POS: [facility]
[2019-05-04] MEDS: Insulin Glargine 10 UNITS in Pre-Filled Syringe 1 EACH SC SCH (17:21)
[2019-05-05] MEDS: Piperacillin/Tazobactam 2.25 GM in Sodium Chloride 0.9% 100 ML IVPB SCH ×4 (05:27→23:24)
[2019-05-05 05:28] LABS: #Basophils 0.1 thou/uL (0.0-0.2); #Eosinphils 0.9 thou/uL (0.0-0.7); #Lymphocytes 3.2 thou/uL (1.20-3.40); #Monocytes 1.7 thou/uL (0.11-0.59); #Neutrophils 11.7 thou/uL (1.40-6.50); %Basophils 0.6 % (0.0-1.0); %Eosinophils 4.9 % (0.0-10.0); %Lymphocytes 18.4 % (21.0-51.0); %Monocytes 9.8 % (0.0-10.0); %Neutrophils 66.3 % (42.0-75.0); Hemoglobin 7.4 g/dL (12.0-16.0); Mean Corpuscular HGB CONC 30.5 g/dL (32.0-36.0); Mean Corpuscular Hemoglobin 23.6 pg (27.0-31.0); Mean Corpuscular Volume 77.6 fL (78.0-98.0); Mean Platelet Volume 6.9 fL (7.4-10.4); Platelet Count 662 thou/uL (130-400); RBC Distribution Width 16.4 % (11.5-14.5); Red Blood Cell (RBC) Count 3.12 mill/uL (4.20-5.40); White Blood Cell (WBC) Count 17.6 thou/uL (4.8-10.8)
[2019-05-05 05:51] LABS: Anion Gap 9 mmol/L (10-20); BUN (Urea Nitrogen) 14 mg/dL (9.8-20.1); Calc. Creatinine Clearance 35 mL/min (70-130); Calcium 9.7 mg/dL (7.8-10.44); Carbon Dioxide 23 mmol/L (23-31); Chloride 110 mmol/L (98-107); Estimated GFR-MDRD 56; Glucose 77 mg/dL (83-110); Potassium 3.3 mmol/L (3.5-5.1); Sodium 139 mmol/L (136-145)
[2019-05-05] MEDS: Enoxaparin Sodium 40 MG/0.4 ML SYRINGE SC SCH (08:07)
[2019-05-05] MEDS: Floranex Packet PO SCH (08:07)
[2019-05-05] MEDS: Famotidine 20 MG TAB PO SCH (08:08)
[2019-05-05] MEDS: Gabapentin 300 MG CAP PO SCH ×2 (08:09→22:55)
[2019-05-05] MEDS: metFORMIN 500 MG TAB PO SCH (08:09)
[2019-05-05 12:46] LABS: Vancomycin, Trough 15.9 ug/mL
[2019-05-05] MEDS: Vancomycin HCl 1 GM in Premix Bag 1 BAG IVPB SCH (13:11)
--- NOTE | 2019-05-05 13:29 | PDOC.HOSPP ---
- Subjective Subjective: Seen and examined. Clinically improving. More interactive. Answered questions appropriately mostly, does not know year. Discussed with daughter Naomy over the phone at who states she is very improved and back to herself. Family happy with plan of care. - Objective Vital Signs & Weight: Vital Signs (12 hours) Temp Pulse Resp BP Pulse Ox 05/05/19 11:47 97.3 F L 71 18 105/47 L 95 05/05/19 08:00 97.3 F L 76 15 103/71 91 L 05/05/19 03:20 97.3 F L 93 20 95/66 96 Weight Weight 119 lb 0.794 oz I&O: 05/04/19 05/05/19 05/06/19 06:59 06:59 06:59 Intake Total 2495 1500 375 Output Total 845 700 500 Balance 1650 800 -125 Result Diagrams: 05/05/19 04:55 05/05/19 04:55 Additional Labs: Accuchecks 05/05/19 05/05/19 05/04/19 11:46 05:43 20:50 POC Glucose 71 75 160 H 05/04/19 15:35 POC Glucose 120 H Radiology Reviewed by me: Yes (Chest x ray) Hospitalist ROS - Review of Systems All other systems reviewed; all pertinent +/- noted in HPI/Subj - Medication Medications: Active Medications Generic Name Dose Route Start Last Admin Trade Name Freq PRN Reason Stop Dose Admin Acidophilus 1 gm 05/04/19 09:00 05/05/19 08:07 Floranex PO 1 gm DAILY LEE Administration Enoxaparin Sodium 40 mg 05/02/19 09:00 05/05/19 08:07 Lovenox SC 40 mg 0900 LEE Administration Famotidine 20 mg 05/02/19 09:00 05/05/19 08:08 Pepcid PO 20 mg DAILY LEE Administration Furosemide 20 mg 05/02/19 10:00 05/04/19 09:42 Lasix PO 20 mg Q2DAYS LEE Administration Gabapentin 300 mg 05/02/19 21:00 05/05/19 08:09 Neurontin PO 300 mg BID LEE Administration Insulin Glargine 10 units/ 0.1 mls @ 0 mls/hr 05/03/19 17:00 05/04/19 17:21 Miscellaneous Medication SC 0.1 mls QPM-WM LEE Administration Piperacillin Sod/Tazobactam 100 mls @ 200 mls/hr 05/03/19 18:00 05/05/19 11: 46 Sod 2.25 gm/ Sodium Chloride IVPB 100 mls Q6HR LEE Administration Vancomycin HCl 1 gm/ Device 200 mls @ 200 mls/hr 05/03/19 13:00 05/05/19 13: 11 IVPB 200 mls 1300 LEE Administration Insulin Human Regular 0 units 05/02/19 09:35 05/03/19 10:52 Humulin R SC 2 unit .MILD SLIDING SCALE PRN Administration Mild Correctional Scale Metformin HCl 500 mg 05/03/19 09:00 05/05/19 08:09 Glucophage PO 500 mg QAM LEE Administration Phenytoin Sodium 200 mg 05/03/19 09:00 05/05/19 08:08 Dilantin Er PO 200 mg MWF LEE Administration Phenytoin Sodium 100 mg 05/02/19 10:00 05/04/19 09:43 Dilantin Er PO 100 mg TUTHSASU LEE Administration Sertraline HCl 150 mg 05/03/19 09:00 05/05/19 08:08 Zoloft PO 150 mg DAILY LEE Administration - Exam General Appearance: NAD, awake alert Eye: anicteric sclera Eye - other findings: EOMI ENT: normocephalic atraumatic, moist mucosa Neck: supple, no JVD Heart: no gallops, no rubs Heart - other findings: S1 and S2 present. No murmur appreciated Respiratory: no rales, no ronchi, normal chest expansion, wheezes (Improving) Gastrointestinal: soft, non-tender, non-distended, no guarding, no rigidity Extremities: no edema Skin: no lesions, no rashes Neurological: CN's grossly intact, no new deficit, hemiplegia (Weakness at baseline from old CVA) Musculoskeletal: generalized weakness Psychiatric: oriented to person, flat affect Hosp A/P (1) Sepsis Code(s): A41.9 - SEPSIS, UNSPECIFIED ORGANISM Status: Acute (2) Dehydration Code(s): E86.0 - DEHYDRATION Status: Acute (3) Encephalopathy acute Code(s): G93.40 - ENCEPHALOPATHY, UNSPECIFIED Status: Resolved (4) UTI (urinary tract infection) Status: Acute (5) Diabetes mellitus Code(s): E11.9 - TYPE 2 DIABETES MELLITUS WITHOUT COMPLICATIONS Status: Chronic (6) Fracture of right tibia and fibula Code(s): S82.201A - UNSP FRACTURE OF SHAFT OF RIGHT TIBIA, INIT FOR CLOS FX; S82.401A - UNSP FRACTURE OF SHAFT OF RIGHT FIBULA, INIT FOR CLOS FX Status: Chronic - Plan Plan: Med/ surg WBC is now responding, on broad spectrum nosocomial coverage Continue Vancomycin/ Zosyn Blood Cx - no growth to date Urine Cx - no growth to date WBC remains elevated, though Afebrile, non toxic appearance Chest xray consistent with early PNA Duo nebs scheduled and PRN Clinically improving D/c IV fluids Oral intake of fluids Continue home lasix Long and short acting insulin for glucose control Alert and oriented to her baseline per daughter Daughter can be reached at [phone] Patient is full code per daughter Continue home meds as able GI and DVT PPX
[2019-05-05] MEDS: Insulin Glargine 10 UNITS in Pre-Filled Syringe 1 EACH SC SCH (18:03)
[2019-05-06 05:04] LABS: #Basophils 0.1 thou/uL (0.0-0.2); #Lymphocytes 2.5 thou/uL (1.20-3.40); #Monocytes 2.1 thou/uL (0.11-0.59); #Neutrophils 13.4 thou/uL (1.40-6.50); %Basophils 0.5 % (0.0-1.0); %Eosinophils 5.1 % (0.0-10.0); %Monocytes 10.9 % (0.0-10.0); %Neutrophils 70.5 % (42.0-75.0); Hemoglobin 7.9 g/dL (12.0-16.0); Mean Corpuscular HGB CONC 30.1 g/dL (32.0-36.0); Mean Corpuscular Hemoglobin 23.4 pg (27.0-31.0); Mean Corpuscular Volume 77.8 fL (78.0-98.0); Platelet Count 723 thou/uL (130-400); RBC Distribution Width 16.4 % (11.5-14.5); Red Blood Cell (RBC) Count 3.37 mill/uL (4.20-5.40); White Blood Cell (WBC) Count 19.1 thou/uL (4.8-10.8)
[2019-05-06] MEDS: Piperacillin/Tazobactam 2.25 GM in Sodium Chloride 0.9% 100 ML IVPB SCH ×4 (05:23→23:20)
[2019-05-06 05:25] LABS: Anion Gap 14 mmol/L (10-20); BUN (Urea Nitrogen) 14 mg/dL (9.8-20.1); Calc. Creatinine Clearance 32 mL/min (70-130); Calcium 10.3 mg/dL (7.8-10.44); Carbon Dioxide 20 mmol/L (23-31); Chloride 109 mmol/L (98-107); Estimated GFR-MDRD 51; Glucose 74 mg/dL (83-110); Potassium 3.2 mmol/L (3.5-5.1); Sodium 140 mmol/L (136-145)
[2019-05-06] MEDS: Enoxaparin Sodium 40 MG/0.4 ML SYRINGE SC SCH (09:11)
[2019-05-06] MEDS: Floranex Packet PO SCH (09:11)
[2019-05-06] MEDS: Furosemide 20 MG TAB PO SCH (09:12)
[2019-05-06] MEDS: metFORMIN 500 MG TAB PO SCH (09:14)
[2019-05-06] MEDS: Famotidine 20 MG TAB PO SCH (09:15)
[2019-05-06] MEDS: Gabapentin 300 MG CAP PO SCH ×2 (11:51→20:26)
--- NOTE | 2019-05-06 12:18 | PDOC.HOSPP ---
- Subjective Subjective: Seen and examined. Looking well. Patient states she is feeling better. Daughter happy with patients progress. Breathing more easily. Denies pain. WBC count remains elevated, though afebrile and non toxic appearance. Pateint with original UTI culture from outpatient clinic with garza sensitive e. coli. Infectious disease input requested. Patient does cough when eating/ drinking an element of chronic aspiration may be present. Will consult speech therapy. - Objective Vital Signs & Weight: Vital Signs (12 hours) Temp Pulse Resp BP Pulse Ox 05/06/19 10:57 97.4 F L 87 16 114/71 96 05/06/19 07:17 97.4 F L 100 16 106/68 97 05/06/19 03:30 97.7 F 110 H 16 103/64 95 Weight Weight 119 lb 0.794 oz I&O: 05/05/19 05/06/19 05/07/19 06:59 06:59 06:59 Intake Total 1500 1825 Output Total 700 1450 Balance 800 375 Result Diagrams: 05/06/19 04:42 05/06/19 04:42 Additional Labs: Accuchecks 05/06/19 05/05/19 05/05/19 05:11 21:45 16:17 POC Glucose 76 120 H 91 Hospitalist ROS - Review of Systems All other systems reviewed; all pertinent +/- noted in HPI/Subj - Medication Medications: Active Medications Generic Name Dose Route Start Last Admin Trade Name Freq PRN Reason Stop Dose Admin Acidophilus 1 gm 05/04/19 09:00 05/06/19 09:11 Floranex PO 1 gm DAILY LEE Administration Enoxaparin Sodium 40 mg 05/02/19 09:00 05/06/19 09:11 Lovenox SC 40 mg 0900 LEE Administration Famotidine 20 mg 05/02/19 09:00 05/06/19 09:15 Pepcid PO 20 mg DAILY LEE Administration Furosemide 20 mg 05/02/19 10:00 05/06/19 09:12 Lasix PO Not Given Q2DAYS LEE Gabapentin 300 mg 05/02/19 21:00 05/06/19 11:51 Neurontin PO 300 mg BID LEE Administration Piperacillin Sod/Tazobactam 100 mls @ 200 mls/hr 05/03/19 18:00 05/06/19 11: 51 Sod 2.25 gm/ Sodium Chloride IVPB 100 mls Q6HR LEE Administration Vancomycin HCl 1 gm/ Device 200 mls @ 200 mls/hr 05/03/19 13:00 05/05/19 13: 11 IVPB 200 mls 1300 LEE Administration Insulin Human Regular 0 units 05/02/19 09:35 05/03/19 10:52 Humulin R SC 2 unit .MILD SLIDING SCALE PRN Administration Mild Correctional Scale Metformin HCl 500 mg 05/03/19 09:00 05/06/19 09:14 Glucophage PO 500 mg QAM LEE Administration Phenytoin Sodium 200 mg 05/03/19 09:00 05/05/19 08:08 Dilantin Er PO 200 mg MWF LEE Administration Phenytoin Sodium 100 mg 05/02/19 10:00 05/06/19 09:12 Dilantin Er PO 100 mg TUTHSASU LEE Administration Sertraline HCl 150 mg 05/03/19 09:00 05/06/19 09:15 Zoloft PO 150 mg DAILY LEE Administration - Exam General Appearance: NAD, awake alert Eye: PERRL, anicteric sclera Eye - other findings: EOMI ENT: no oropharyngeal lesions, moist mucosa Neck: supple, symmetric, no lymphadenopathy Heart: no murmur, no gallops, no rubs Heart - other findings: S1 and S2 present Respiratory: CTAB, no rales, no ronchi, wheezes (Faint upper lung prado, improved) Gastrointestinal: soft, non-tender, non-distended, no palpable masses, no guarding, no rigidity Extremities: 1+ LE edema Skin: no lesions, no rashes Neurological: CN's grossly intact, no new deficit, hemiplegia (Weakness from prior CVA at baseline) Musculoskeletal: generalized weakness Psychiatric: oriented to person, flat affect Hosp A/P (1) Sepsis Code(s): A41.9 - SEPSIS, UNSPECIFIED ORGANISM Status: Acute (2) Dehydration Code(s): E86.0 - DEHYDRATION Status: Acute (3) Encephalopathy acute Code(s): G93.40 - ENCEPHALOPATHY, UNSPECIFIED Status: Resolved (4) UTI (urinary tract infection) Status: Acute (5) Diabetes mellitus Code(s): E11.9 - TYPE 2 DIABETES MELLITUS WITHOUT COMPLICATIONS Status: Chronic (6) Fracture of right tibia and fibula Code(s): S82.201A - UNSP FRACTURE OF SHAFT OF RIGHT TIBIA, INIT FOR CLOS FX; S82.401A - UNSP FRACTURE OF SHAFT OF RIGHT FIBULA, INIT FOR CLOS FX Status: Chronic - Plan Plan: Med/ surg Infectious disease consult, recommendations appreciated WBC is remains elevated, despite spectrum coverage Continue Vancomycin/ Zosyn 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 is possible Consult Speech therapy - eval and treat Outpatient urine culture with garza sensitive e.coli Blood Cx - no growth to date Urine Cx - no growth to date WBC remains elevated, though Afebrile, non toxic appearance Chest xray consistent with early PNA Duo nebs scheduled and PRN Clinically improving Off IV fluids Oral intake of fluids Continue home lasix Long and short acting insulin for glucose control Alert and oriented to her baseline per daughter Daughter can be reached at C Patient is full code per daughter Continue home meds as able GI and DVT PPX
--- NOTE | 2019-05-06 12:26 | PDOC.EVN ---
Event Note - Event Note Event Note: Called daughter at [phone] to give status update. No answers on 2 attempts , will try again later.
[2019-05-06] MEDS: Vancomycin HCl 1 GM in Premix Bag 1 BAG IVPB SCH (14:05)
[2019-05-06] MEDS: Insulin Glargine 8 UNITS in Pre-Filled Syringe SC SCH (20:48)
[2019-05-07] MEDS: Piperacillin/Tazobactam 2.25 GM in Sodium Chloride 0.9% 100 ML IVPB SCH ×4 (05:33→23:52)
[2019-05-07 06:56] LABS: Hemoglobin 8.1 g/dL (12.0-16.0); Mean Corpuscular HGB CONC 30.3 g/dL (32.0-36.0); Mean Corpuscular Hemoglobin 23.2 pg (27.0-31.0); Mean Corpuscular Volume 76.8 fL (78.0-98.0); Mean Platelet Volume 7.1 fL (7.4-10.4); Platelet Count 746 thou/uL (130-400); RBC Distribution Width 16.3 % (11.5-14.5); White Blood Cell (WBC) Count 20.1 thou/uL (4.8-10.8)
[2019-05-07 07:39] LABS: Band 1 % (5-11); Eosinophils 5 % (0-10); Hypochromia SLIGHT = 6-15 cells (100X) (0-5/hpf); Lymphocytes 13 % (21-51); MDiff Complete? YES; Microcytosis SLIGHT = 6-15 cells (100X) (0-5/hpf); Monocytes 5 % (0-10); Neutrophil 76 % (42-75); Platelet Morphology Comment Appears Increased; Polychromasia SLIGHT = 2-3 cells (100X) (0-2/hpf)
[2019-05-07 08:57] LABS: Anion Gap 8 mmol/L (10-20); BUN (Urea Nitrogen) 13 mg/dL (9.8-20.1); Calc. Creatinine Clearance 32 mL/min (70-130); Calcium 10.3 mg/dL (7.8-10.44); Carbon Dioxide 25 mmol/L (23-31); Chloride 111 mmol/L (98-107); Estimated GFR-MDRD 49; Glucose 115 mg/dL (83-110); Potassium 3.1 mmol/L (3.5-5.1); Sodium 141 mmol/L (136-145)
[2019-05-07] MEDS: Floranex Packet PO SCH (09:43)
[2019-05-07] MEDS: Enoxaparin Sodium 40 MG/0.4 ML SYRINGE SC SCH (09:43)
[2019-05-07] MEDS: metFORMIN 500 MG TAB PO SCH (09:44)
[2019-05-07] MEDS: Gabapentin 300 MG CAP PO SCH ×2 (09:44→21:32)
[2019-05-07] MEDS: Famotidine 20 MG TAB PO SCH (09:44)
[2019-05-07 12:44] LABS: Vancomycin, Trough 26.3 ug/mL
--- NOTE | 2019-05-07 12:50 | PDOC.HOSPP ---
- Subjective Subjective: Seen and examined. Clinically looking well. Breathing well on room air. Denies pain. Ate 50% of her breakfast. Still with leukocytosis, ID input requested. - Objective Vital Signs & Weight: Vital Signs (12 hours) Temp Pulse Resp BP Pulse Ox 05/07/19 07:48 92 L 05/07/19 07:39 97.4 F L 110 H 14 118/77 92 L 05/07/19 04:03 97.3 F L 110 H 16 122/60 92 L Weight Weight 119 lb 0.794 oz I&O: 05/06/19 05/07/19 05/08/19 06:59 06:59 06:59 Intake Total 1825 1510 Output Total 1450 200 100 Balance 375 1310 -100 Result Diagrams: 05/07/19 05:36 05/07/19 08:27 Additional Labs: Accuchecks 05/06/19 05/06/19 05/06/19 20:43 15:35 12:03 POC Glucose 186 H 158 H 129 H Hospitalist ROS - Review of Systems All other systems reviewed; all pertinent +/- noted in HPI/Subj - Medication Medications: Active Medications Generic Name Dose Route Start Last Admin Trade Name Freq PRN Reason Stop Dose Admin Acidophilus 1 gm 05/04/19 09:00 05/07/19 09:43 Floranex PO 1 gm DAILY LEE Administration Enoxaparin Sodium 40 mg 05/02/19 09:00 05/07/19 09:43 Lovenox SC 40 mg 0900 LEE Administration Famotidine 20 mg 05/02/19 09:00 05/07/19 09:44 Pepcid PO 20 mg DAILY LEE Administration Furosemide 20 mg 05/02/19 10:00 05/06/19 09:12 Lasix PO Not Given Q2DAYS LEE Gabapentin 300 mg 05/02/19 21:00 05/07/19 09:44 Neurontin PO 300 mg BID LEE Administration Piperacillin Sod/Tazobactam 100 mls @ 200 mls/hr 05/03/19 18:00 05/07/19 12: 19 Sod 2.25 gm/ Sodium Chloride IVPB 100 mls Q6HR LEE Administration Vancomycin HCl 1 gm/ Device 200 mls @ 200 mls/hr 05/03/19 13:00 05/06/19 14: 05 IVPB 200 mls 1300 LEE Administration Insulin Glargine 8 units/ 0.08 mls @ 0 mls/hr 05/06/19 21:00 05/06/19 20:48 Miscellaneous Medication SC 0.08 mls HS LEE Administration Insulin Human Regular 0 units 05/02/19 09:35 05/03/19 10:52 Humulin R SC 2 unit .MILD SLIDING SCALE PRN Administration Mild Correctional Scale Metformin HCl 500 mg 05/03/19 09:00 05/07/19 09:44 Glucophage PO 500 mg QAM LEE Administration Phenytoin Sodium 200 mg 05/03/19 09:00 05/07/19 09:43 Dilantin Er PO 200 mg MWF LEE Administration Phenytoin Sodium 100 mg 05/02/19 10:00 05/06/19 09:12 Dilantin Er PO 100 mg TUTHSASU LEE Administration Sertraline HCl 150 mg 05/03/19 09:00 05/07/19 09:44 Zoloft PO 150 mg DAILY LEE Administration - Exam General Appearance: NAD Eye: anicteric sclera Eye - other findings: EOMI ENT: no oropharyngeal lesions, moist mucosa Neck: supple, symmetric, no lymphadenopathy Heart: no murmur, no gallops, no rubs Heart - other findings: S1 and S2 present Respiratory: no rales, no ronchi, wheezes. negative: tachypneic Respiratory - other findings: Wheezing nearly resolved Gastrointestinal: soft, non-tender, non-distended, no palpable masses, no guarding, no rigidity Extremities: no edema Skin: no lesions, no rashes Neurological: CN's grossly intact, no new deficit, hemiplegia, speech deficit Musculoskeletal: generalized weakness Psychiatric: oriented to person, flat affect Hosp A/P (1) Sepsis Code(s): A41.9 - SEPSIS, UNSPECIFIED ORGANISM Status: Acute (2) Dehydration Code(s): E86.0 - DEHYDRATION Status: Acute (3) Encephalopathy acute Code(s): G93.40 - ENCEPHALOPATHY, UNSPECIFIED Status: Resolved (4) UTI (urinary tract infection) Status: Acute (5) Diabetes mellitus Code(s): E11.9 - TYPE 2 DIABETES MELLITUS WITHOUT COMPLICATIONS Status: Chronic (6) Fracture of right tibia and fibula Code(s): S82.201A - UNSP FRACTURE OF SHAFT OF RIGHT TIBIA, INIT FOR CLOS FX; S82.401A - UNSP FRACTURE OF SHAFT OF RIGHT FIBULA, INIT FOR CLOS FX Status: Chronic - Plan Plan: Med/ surg Infectious disease consult, recommendations appreciated WBC is remains elevated, despite broad spectrum coverage Continue Vancomycin/ Zosyn 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
--- NOTE | 2019-05-07 13:16 | PQF ---
CLINICAL DOCUMENTATION IMPROVEMENT CLARIFICATION FORM: ICD-10 Updated PLEASE DO AN ADDENDUM TO THE PROGRESS NOTE WITH ANY DOCUMENTATION UPDATES OR ADDITIONS AND CARRY THROUGH TO DC SUMMARY. THANK YOU. DATE: 05/07/2019 ATTN:Dr. Park Please exercise your independent, professional judgment in responding to the clarification form. Clinical indicators are provided on the bottom of this form for your review Please check appropriate box(s): [ ] I (concur) with the Nursing Assessment findings as stated below. [ Stage II ] Pressure Ulcer: (Stage I: Erythema; Stage II: Partial thickness; Stage III: Full thickness; Stage IV: Necrosis to muscle/bone) [ X ] Location: __Left buttocks POA: [ XX ] Yes [ ] No[ ] Unable to determine Stage (I to IV): Stage II__(Left XX__ Right__Bilateral__N/A__ ) [ ] Location: POA: [ ] Yes [ ] No [ ] Unable to determine Stage (I to IV): __(Left__Right__Bilateral__N/A__) [ ] No pressure ulcer diagnosis [ ] Other diagnosis [ ] Unable to determine In addition, please specify: Present on Admission (POA): [ ] Yes [ ] No [ ] Unable to determine For continuity of documentation, please document condition throughout progress notes and discharge summary. Thank You. CLINICAL INDICATORS - SIGNS / SYMPTOMS / LABS ER Nursing Assessment 05/01: SKIN: left buttocks abrasion stage 2 opening - redness surrounding - dime size opening Nursing Assessment 05/06 @ 0800: Left Buttock Pressure Ulcer. Stage II RISKS: H&P 05/01: 89 yo. She is bed bound after tibial fx in 2018. DM. Encephalopathy, UTI, Dehydration. TREATMENT Nursing Assessment 05/01: Specialty Bed Static Air Mattress Skin Interventions: skin kept from excessive moisture position changes: q2 h in bed, q1 hr in chair Pre-ulcer skin changes limited to persistent focal edema (Stage 1) Abrasion, blister, partial thickness skin loss involving epidermis and/or dermis (Stage 2) Full thickness skin loss involving damage or necrosis of SQ tissue. (Stage 3) Necrosis of soft tissue through to underlying muscle, tendon, or bone. (Stage 4) Purple or maroon discolored skin or blood filled blister Thank you, Yoly (This form is maintained as a part of the permanent medical record) 2015 [employer] All Rights Reserved Yoly Barrera RN, BSN [email or web address] Office: [phone] [facility]
--- NOTE | 2019-05-07 14:58 | PQF ---
CLINICAL DOCUMENTATION IMPROVEMENT CLARIFICATION FORM: ICD-10 Updated PLEASE DO AN ADDENDUM TO THE PROGRESS NOTE WITH ANY DOCUMENTATION UPDATES OR ADDITIONS AND CARRY THROUGH TO DC SUMMARY. THANK YOU. DATE: 05/07/2019 ATTN: Dr. Park Please exercise your independent, professional judgment in responding to the clarification form. Clinical indicators are provided on the bottom of this form for your review Please check appropriate box(s): [ XX ] Encephalopathy: Etiology: [ XX ] Metabolic [ ] Toxic [ ] Septic [ ] Drug induced: [ ] Unspecified [ ] Other (please specify) [ ] Other diagnosis [ ] Unable to determine In addition, please specify: Present on Admission (POA): [ XX ] Yes [ ] No [ ] Unable to determine For continuity of documentation, please document condition throughout progress notes and discharge summary. Thank You. CLINICAL INDICATORS - SIGNS / SYMPTOMS / LABS H&P 05/01: Encephalopathy. Acute UTI PN 05/03: Sepsis Dehydration Encephalopathy acute. Resolved UTI Plan: WBC not responding, will escalate ABX to nosocomial coverage RISKS: H&P 05/01: 89 yo on Cipro for a UTI for the past 6 days. She is bed bound after a tibial fx 2018. DM 2. UTI. Dehydration. TREATMENT: MAR: Order 05/01-05/03: Order IV Rocephin PN 05/03: Start Vancomycin/ Zosyn 05/06 Order: Infectious Disease Consult Thank you, Yoly (This form is maintained as a part of the permanent medical record) 2014 [employer] All Rights Reserved Yoly Barrera RN, BSN [email or web address] Office: [phone] [facility]
[2019-05-07] MEDS: Insulin Regular 300 UNITS/3 ML VIAL SC PRN (17:21)
[2019-05-07] MEDS: Insulin Glargine 8 UNITS in Pre-Filled Syringe SC SCH (21:32)
--- NOTE | 2019-05-07 22:39 | CON ---
DATE OF CONSULTATION: 05/07/2019 REASON FOR CONSULTATION: UTI versus pneumonia or both. HISTORY OF PRESENT ILLNESS: An 89-year-old with history of prior CVAs and atrial fibrillation, has had a previous comminuted right proximal tibia and fibula fracture in 2018 and has had progressive cognitive decline, was brought in at this time at the end of April because of mental status changes, apparently was given Rocephin prior to the transfer. There was some concern with the appearance of her urine and had a positive culture for E coli that was treated. On arrival, her BP was 103/59, pulse 87, temperature 98.2, O2 saturation 94 and the exam showed no evidence of skin breakdown. She was able to give some simple answers, but was oriented times self only. Initial laboratory results with a white cell count 19.7, hemoglobin 8.7, MCV 75, and platelet count of 447. The chemistry with a creatinine of 1.05. The last liver profile was from this admission, which was within normal limits. Albumin is 2.8 and globulin 4.0. BNP 258. The urinalysis demonstrated greater than 50 wbc's and thus far, microbiology with negative urine culture at 48 hours and blood culture, no growth at 5 days. Since admission, she has remained afebrile. There are actually 3 chest x-rays, the one on admission with extensive interstitial prominence, the second one 3 days later with stable interstitial prominence, and the 3rd one with some mild infiltrate in right lower lung and chronic changes. Currently, Ms. Box is awake. She will basically only answer to simple questions such as enquiring about pain and her answers are limited to yes and no. She could not even tell me her name. PAST MEDICAL HISTORY: Arrhythmia with atrial fibrillation, type 2 diabetes, hypertension, prior CVAs with dementia, probably vascular dementia, history of seizure activity. PAST SURGICAL HISTORY: Cholecystectomy, never a smoker. ALLERGIES: JAY INHIBITORS, CODEINE, IODINE, AND MORPHINE. FAMILY HISTORY: Noncontributory. CURRENT MEDICATIONS: 1. Tylenol. 2. Floranex. 3. DuoNeb. 4. Dulcolax. 5. Tums. 6. Dextrose. 7. Benadryl. 8. Lovenox. 9. Pepcid. 10. Lasix. 11. Neurontin. 12. Apresoline. 13. Insulin. 14. Glucophage. 15. Zofran. 16. Dilantin. 17. Zosyn. 18. Vancomycin. PHYSICAL EXAMINATION: VITAL SIGNS: T-max 97.4, blood pressure 114/64, pulse 110, respirations 14, O2 saturation 91. SKIN: Area of stage II ulceration in the mid back area with small rim of erythema, mostly pinkish discoloration of the skin from healing of the ulcer. GENERAL: She has a peripheral IV access and voiding in the diaper. HEENT: No lymphadenopathy. She has evidence of wasting syndrome with temporal wasting. Her ocular movements are conjugate. No nystagmus. Somewhat pale conjunctivae. Oral cavity with numerous remaining teeth, but with marked decay and gum disease. Oral cavity otherwise was normal. NECK: Stiffness in the neck movements. LUNGS: Fairly clear breath sounds. No wheezing. HEART: S1 and S2. Diminished heart sounds, irregular rate without obvious murmurs. ABDOMEN: Soft, not distended or tender. No ascites. No bladder distention. No organomegaly noted. EXTREMITIES: She has very limited movements in upper and lower extremities. She is able to raise her hands from the bed and does follow some commands, but the movements are very sluggish and she obviously has stiffness of the legs, she is unable to move very well, but she does have movements in the toes. There is no edema. There is no joint inflammatory activity noted. Pulses are 1+ in dorsalis pedis. Plantar responses are flexor without clonus. NEUROLOGICAL: She is awake. She will establish eye contact briefly, but otherwise her interactions are very limited due to her cognitive impairment. LABORATORY DATA: Followup labs; white cell count is up to 20,000, hemoglobin 8, MCV 76 with 76% neutrophils, platelets 746. Vancomycin trough 26. Microbiology with negative cultures as noted above. ASSESSMENT: Atrial fibrillation with prior cerebrovascular accidents, cognitive dysfunction, likely vascular dementia, diffuse stiffness, temporal wasting; chronic pulmonary infiltrates, probably with interstitial prominence; abnormal urinalysis, but negative urine cultures thus far; thrombocytosis with microcytic anemia and neutrophilia. DISCUSSION: Differential diagnosis includes aspiration pneumonia, chronic aspiration, pyelonephritis is less likely in view of the absence of fever, but not ruled out an intraabdominal inflammatory process, malignancy not yet identified. For example, gastrointestinal malignancy in view of her microcytic anemia is something to be considered. Iron deficiency can be associated with thrombocytosis and neutrophilia. Due to immobility, thromboembolism is another consideration. She does have hypoxemia and she may have either interstitial lung disease or associated thromboembolism. The patient has advanced age and I do not know how aggressive the management is desired, but otherwise the workup would include CT of chest, abdomen and pelvis with IV and oral contrast, speech therapy evaluation, anemia workup with iron studies, B12, and so on, and the thromboembolism workup with duplex ultrasound of lower extremities. If so desired, if it is felt that the workup needs to be aggressive, then those would be the recommended interventions to tease out the causes of this thrombocytosis, microcytic anemia, hypoxemia, and so on. It is not necessarily true that the urinary findings are responsible for the clinical and laboratory changes. Job ID: [id number]
[2019-05-08] MEDS: Piperacillin/Tazobactam 2.25 GM in Sodium Chloride 0.9% 100 ML IVPB SCH ×4 (05:16→23:28)
[2019-05-08 05:50] LABS: #Basophils 0.1 thou/uL (0.0-0.2); #Eosinphils 0.8 thou/uL (0.0-0.7); #Lymphocytes 2.2 thou/uL (1.20-3.40); #Monocytes 2.1 thou/uL (0.11-0.59); #Neutrophils 16.1 thou/uL (1.40-6.50); %Basophils 0.3 % (0.0-1.0); %Eosinophils 3.9 % (0.0-10.0); %Lymphocytes 10.4 % (21.0-51.0); %Monocytes 9.8 % (0.0-10.0); %Neutrophils 75.6 % (42.0-75.0); Hemoglobin 7.8 g/dL (12.0-16.0); Mean Corpuscular HGB CONC 29.5 g/dL (32.0-36.0); Mean Corpuscular Hemoglobin 23.1 pg (27.0-31.0); Mean Corpuscular Volume 78.3 fL (78.0-98.0); Mean Platelet Volume 6.9 fL (7.4-10.4); Platelet Count 695 thou/uL (130-400); RBC Distribution Width 16.4 % (11.5-14.5); Red Blood Cell (RBC) Count 3.37 mill/uL (4.20-5.40); White Blood Cell (WBC) Count 21.4 thou/uL (4.8-10.8)
[2019-05-08 06:17] LABS: Anion Gap 8 mmol/L (10-20); BUN (Urea Nitrogen) 13 mg/dL (9.8-20.1); Calc. Creatinine Clearance 32 mL/min (70-130); Calcium 10.9 mg/dL (7.8-10.44); Carbon Dioxide 24 mmol/L (23-31); Chloride 113 mmol/L (98-107); Estimated GFR-MDRD 51; Glucose 89 mg/dL (83-110); Potassium 3.2 mmol/L (3.5-5.1); Sodium 142 mmol/L (136-145)
[2019-05-08] MEDS: Famotidine 20 MG TAB PO SCH (10:13)
[2019-05-08] MEDS: metFORMIN 500 MG TAB PO SCH (10:13)
[2019-05-08] MEDS: Gabapentin 300 MG CAP PO SCH ×2 (10:13→20:40)
[2019-05-08] MEDS: Furosemide 20 MG TAB PO SCH (10:14)
[2019-05-08] MEDS: Floranex Packet PO SCH (10:15)
[2019-05-08] MEDS: Enoxaparin Sodium 40 MG/0.4 ML SYRINGE SC SCH (10:15)
[2019-05-08] MEDS: Vancomycin HCl 500 MG in Sodium Chloride 0.9% 100 ML IVPB SCH (13:10)
--- NOTE | 2019-05-08 15:39 | PDOC.HOSPP ---
- Subjective Subjective: Seen and examined. Clinically improved. Better oral intake with encouragement. Discussed case at length with daughter on the phone who wishes no futher aggressive testing such as CT scans with contrast. States that even if they were to find a tumor or some other pathology they would not seek aggressive measures. Will order LE US to rule out DVT, patient has been on Lovenox injections since arrival. - Objective Vital Signs & Weight: Vital Signs (12 hours) Temp Pulse Resp BP Pulse Ox 05/08/19 11:24 97.6 F 95 16 108/69 94 L 05/08/19 07:37 97.4 F L 99 20 124/73 92 L Weight Admit Weight 119 lb 0.794 oz Weight 119 lb 0.794 oz I&O: 05/07/19 05/08/19 05/09/19 06:59 06:59 06:59 Intake Total 1510 1090 Output Total 200 200 Balance 1310 890 Result Diagrams: 05/08/19 05:15 05/08/19 05:15 Additional Labs: Accuchecks 05/08/19 05/08/19 05/07/19 11:29 05:50 21:29 POC Glucose 101 94 143 H 05/07/19 15:45 POC Glucose 166 H Hospitalist ROS - Review of Systems All other systems reviewed; all pertinent +/- noted in HPI/Subj - Medication Medications: Active Medications Generic Name Dose Route Start Last Admin Trade Name Freq PRN Reason Stop Dose Admin Acidophilus 1 gm 05/04/19 09:00 05/08/19 10:15 Floranex PO 1 gm DAILY LEE Administration Enoxaparin Sodium 40 mg 05/02/19 09:00 05/08/19 10:15 Lovenox SC 40 mg 0900 LEE Administration Famotidine 20 mg 05/02/19 09:00 05/08/19 10:13 Pepcid PO 20 mg DAILY LEE Administration Furosemide 20 mg 05/02/19 10:00 05/08/19 10:14 Lasix PO 20 mg Q2DAYS LEE Administration Gabapentin 300 mg 05/02/19 21:00 05/08/19 10:13 Neurontin PO 300 mg BID LEE Administration Piperacillin Sod/Tazobactam 100 mls @ 200 mls/hr 05/03/19 18:00 05/08/19 12: 16 Sod 2.25 gm/ Sodium Chloride IVPB 100 mls Q6HR LEE Administration Insulin Glargine 8 units/ 0.08 mls @ 0 mls/hr 05/06/19 21:00 05/07/19 21:32 Miscellaneous Medication SC 0.08 mls HS LEE Administration Vancomycin HCl 500 mg/ Sodium 100 mls @ 100 mls/hr 05/08/19 13:00 05/08/19 13 :10 Chloride IVPB 100 mls 1300 LEE Administration Insulin Human Regular 0 units 05/02/19 09:35 05/07/19 17:21 Humulin R SC 2 unit .MILD SLIDING SCALE PRN Administration Mild Correctional Scale Metformin HCl 500 mg 05/03/19 09:00 05/08/19 10:13 Glucophage PO 500 mg QAM LEE Administration Phenytoin Sodium 200 mg 05/03/19 09:00 05/07/19 09:43 Dilantin Er PO 200 mg MWF LEE Administration Phenytoin Sodium 100 mg 05/02/19 10:00 05/06/19 09:12 Dilantin Er PO 100 mg TUTHSASU LEE Administration Sertraline HCl 150 mg 05/03/19 09:00 05/08/19 10:14 Zoloft PO 150 mg DAILY LEE Administration - Exam General Appearance: NAD Eye: PERRL ENT: moist mucosa Neck: supple, no lymphadenopathy Heart: no murmur, no gallops Heart - other findings: S1 and S2 present Respiratory: no wheezes, no rales, no ronchi Gastrointestinal: soft, non-tender, non-distended, no guarding, no rigidity Extremities: no edema Skin: no lesions, no rashes Neurological: CN's grossly intact, normal sensation to touch, no focal deficits Musculoskeletal: generalized weakness Psychiatric: oriented to person, flat affect Hosp A/P (1) Sepsis Code(s): A41.9 - SEPSIS, UNSPECIFIED ORGANISM Status: Acute (2) Dehydration Code(s): E86.0 - DEHYDRATION Status: Acute (3) Encephalopathy acute Code(s): G93.40 - ENCEPHALOPATHY, UNSPECIFIED Status: Resolved (4) UTI (urinary tract infection) Status: Acute (5) Diabetes mellitus Code(s): E11.9 - TYPE 2 DIABETES MELLITUS WITHOUT COMPLICATIONS Status: Chronic (6) Fracture of right tibia and fibula Code(s): S82.201A - UNSP FRACTURE OF SHAFT OF RIGHT TIBIA, INIT FOR CLOS FX; S82.401A - UNSP FRACTURE OF SHAFT OF RIGHT FIBULA, INIT FOR CLOS FX Status: Chronic - Plan Plan: Med/ surg Infectious disease consult, recommendations appreciated WBC is remains elevated, despite broad spectrum coverage - likely chronic and not pharmacy services representative of acute infectious process Family not interested in aggressive testing including CT with contrast (which she is allergic to and may cause renal failure) ABX per ID 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, Speech recommend thickened liquids - may be cause of persistent WBC count Consult Speech therapy - eval and treat Outpatient urine culture with garza sensitive e.coli Blood Cx - no growth to date Urine Cx - no growth to date WBC remains elevated, though Afebrile, non toxic appearance Chest xray consistent with early PNA Duo nebs scheduled and PRN Off IV fluids Oral intake of fluids Continue home lasix Long and short acting insulin for glucose control Alert and oriented to her baseline per daughter Daughter can be reached at [phone] Patient is full code per daughter Continue home meds as able GI and DVT PPX
--- NOTE | 2019-05-08 17:34 | ULT ---
EXAM: Bilateral lower extremity venous ultrasound HISTORY: Bilateral lower extremity pain and edema COMPARISON: None TECHNIQUE: Multiplanar grayscale and color Doppler images were obtained in a bilateral lower extremit y venous ultrasound. Spectral analysis of the Doppler waveforms were performed. FINDINGS: The bilateral common femoral vein, profunda femoral veins, superficial femoral veins, and p opliteal veins are normal in appearance without visible thrombus. These vessels demonstrate normal compression, flow, and augmentation. The bilateral posterior tibial veins and greater saphenous veins are patent without evidence of throm bus. IMPRESSION: No evidence of DVT.
[2019-05-08] MEDS: Insulin Glargine 8 UNITS in Pre-Filled Syringe SC SCH (21:02)
[2019-05-09] MEDS: Piperacillin/Tazobactam 2.25 GM in Sodium Chloride 0.9% 100 ML IVPB SCH ×4 (05:00→23:56)
[2019-05-09] MEDS: Famotidine 20 MG TAB PO SCH (09:36)
[2019-05-09] MEDS: metFORMIN 500 MG TAB PO SCH (09:36)
[2019-05-09] MEDS: Gabapentin 300 MG CAP PO SCH ×2 (09:36→21:40)
[2019-05-09] MEDS: Enoxaparin Sodium 40 MG/0.4 ML SYRINGE SC SCH (09:38)
[2019-05-09 11:59] LABS: Anion Gap 10 mmol/L (10-20); BUN (Urea Nitrogen) 11 mg/dL (9.8-20.1); Calc. Creatinine Clearance 32 mL/min (70-130); Calcium 11.4 mg/dL (7.8-10.44); Carbon Dioxide 26 mmol/L (23-31); Chloride 111 mmol/L (98-107); Estimated GFR-MDRD 49; Glucose 110 mg/dL (83-110); Potassium 3.2 mmol/L (3.5-5.1); Sodium 144 mmol/L (136-145)
[2019-05-09] MEDS: Floranex Packet PO SCH (12:00)
[2019-05-09 12:01] LABS: #Basophils 0.2 thou/uL (0.0-0.2); #Eosinphils 0.6 thou/uL (0.0-0.7); #Lymphocytes 1.9 thou/uL (1.20-3.40); #Monocytes 1.9 thou/uL (0.11-0.59); #Neutrophils 18.7 thou/uL (1.40-6.50); %Basophils 0.7 % (0.0-1.0); %Eosinophils 2.5 % (0.0-10.0); %Lymphocytes 8.1 % (21.0-51.0); %Monocytes 8.2 % (0.0-10.0); %Neutrophils 80.6 % (42.0-75.0); Hemoglobin 8.1 g/dL (12.0-16.0); Mean Corpuscular HGB CONC 29.3 g/dL (32.0-36.0); Mean Corpuscular Hemoglobin 22.9 pg (27.0-31.0); Mean Corpuscular Volume 78.3 fL (78.0-98.0); Platelet Count 761 thou/uL (130-400); RBC Distribution Width 16.8 % (11.5-14.5); Red Blood Cell (RBC) Count 3.53 mill/uL (4.20-5.40); White Blood Cell (WBC) Count 23.2 thou/uL (4.8-10.8)
--- NOTE | 2019-05-09 14:10 | PRG ---
DATE OF SERVICE: 05/09/2019 SUBJECTIVE: Ms. Box is more alert. She opens her eyes and answers promptly, but the types of answers are very limited to yes or no. Review of systems was pretty much negative. Denies any pain. No shortness of breath. No abdominal pain. Specifically, no genitourinary symptoms. OBJECTIVE: VITAL SIGNS: She has been afebrile throughout the hospital stay and BP 110/72. HEENT: Ocular movements are conjugate. Pale conjunctivae. Oral cavity with numerous remaining teeth with marked decay and gum disease. LUNGS: Symmetric air entry without crackles or wheezing. HEART: S1, S2. Regular rate. ABDOMEN: Soft, not distended. : No bladder distention. No stool noted in the perineal area. EXTREMITIES: Diffuse weakness and stiffness, joint deformities. LABORATORY DATA: White cell count is still at 23.2, hemoglobin 8.1, platelets 761, 80% neutrophils. Creatinine is 1.01. Urinalysis with greater than 50 wbc's. The patient had a duplex ultrasound to rule out DVT and that was negative with patent veins. ASSESSMENT AND DISCUSSION: Atrial fibrillation with prior cerebrovascular accidents, cognitive dysfunction, likely vascular dementia, chronic pulmonary infiltrates with interstitial prominence, abnormal urinalysis but negative urine cultures, leukocytosis persistent, as well as thrombocytosis despite antimicrobial therapy, microcytic anemia. At this point, we will go ahead and order a CT of chest, abdomen, and pelvis with contrast to rule out inflammatory process in view of the persistence of leukocytosis despite antimicrobial therapy and in the face of negative cultures. For example, she could have a malignancy or could have a chronic inflammatory condition, that has not yet been identified. Job ID: [id number]
--- NOTE | 2019-05-09 15:34 | PDOC.HOSPP ---
- Subjective Subjective: Seen and examined. Sitting up in bed, breathing well on room air. Alert to her baseline. No acute overnight events. No changes clinically. - Objective Vital Signs & Weight: Vital Signs (12 hours) Temp Pulse Resp BP Pulse Ox 05/09/19 15:08 98.1 F 103 H 18 102/66 93 L 05/09/19 11:18 97.5 F L 107 H 20 110/72 95 05/09/19 08:45 95 05/09/19 07:26 97.7 F 95 20 114/73 95 Weight Admit Weight 119 lb 0.794 oz Weight 119 lb 0.794 oz I&O: 05/08/19 05/09/19 05/10/19 06:59 06:59 06:59 Intake Total 1090 200 Output Total 200 Balance 890 200 Result Diagrams: 05/09/19 11:14 05/09/19 11:14 Additional Labs: Accuchecks 05/09/19 05/09/19 05/09/19 15:14 11:21 05:23 POC Glucose 122 H 108 77 05/08/19 05/08/19 21:03 15:41 POC Glucose 72 89 Hospitalist ROS - Review of Systems All other systems reviewed; all pertinent +/- noted in HPI/Subj - Medication Medications: Active Medications Generic Name Dose Route Start Last Admin Trade Name Sloan PRN Reason Stop Dose Admin Acidophilus 1 gm 05/04/19 09:00 05/09/19 12:00 Floranex PO Not Given DAILY LEE Enoxaparin Sodium 40 mg 05/02/19 09:00 05/09/19 09:38 Lovenox SC 40 mg 0900 LEE Administration Famotidine 20 mg 05/02/19 09:00 05/09/19 09:36 Pepcid PO 20 mg DAILY LEE Administration Furosemide 20 mg 05/02/19 10:00 05/08/19 10:14 Lasix PO 20 mg Q2DAYS LEE Administration Gabapentin 300 mg 05/02/19 21:00 05/09/19 09:36 Neurontin PO 300 mg BID LEE Administration Piperacillin Sod/Tazobactam 100 mls @ 200 mls/hr 05/03/19 18:00 05/09/19 12: 00 Sod 2.25 gm/ Sodium Chloride IVPB 100 mls Q6HR LEE Administration Insulin Glargine 8 units/ 0.08 mls @ 0 mls/hr 05/06/19 21:00 05/08/19 21:02 Miscellaneous Medication SC Not Given HS LEE Vancomycin HCl 500 mg/ Sodium 100 mls @ 100 mls/hr 05/08/19 13:00 05/08/19 13 :10 Chloride IVPB 100 mls 1300 LEE Administration Insulin Human Regular 0 units 05/02/19 09:35 05/07/19 17:21 Humulin R SC 2 unit .MILD SLIDING SCALE PRN Administration Mild Correctional Scale Metformin HCl 500 mg 05/03/19 09:00 05/09/19 09:36 Glucophage PO 500 mg QAM LEE Administration Phenytoin Sodium 200 mg 05/03/19 09:00 05/07/19 09:43 Dilantin Er PO 200 mg MWF LEE Administration Phenytoin Sodium 100 mg 05/02/19 10:00 05/06/19 09:12 Dilantin Er PO 100 mg TUTHSASU LEE Administration Sertraline HCl 150 mg 05/03/19 09:00 05/09/19 09:36 Zoloft PO 150 mg DAILY LEE Administration - Exam General Appearance: NAD Eye: anicteric sclera Eye - other findings: EOMI ENT: no oropharyngeal lesions, moist mucosa Neck: supple, symmetric, no thyromegaly, no lymphadenopathy Heart: normal peripheral pulses Heart - other findings: S1 and S2, no appreciated murmur Respiratory: no wheezes, no rales, no ronchi, normal chest expansion, no tachypnea Gastrointestinal: soft, normal bowel sounds, no guarding, no rigidity Extremities: no edema Skin: no lesions, no rashes Neurological: CN's grossly intact, no focal deficits, speech deficit Neurological - other findings: Basline deficits from prior CVA Musculoskeletal: generalized weakness Psychiatric: oriented to person, flat affect Hosp A/P (1) Sepsis Code(s): A41.9 - SEPSIS, UNSPECIFIED ORGANISM Status: Acute (2) Dehydration Code(s): E86.0 - DEHYDRATION Status: Acute (3) Encephalopathy acute Code(s): G93.40 - ENCEPHALOPATHY, UNSPECIFIED Status: Resolved (4) UTI (urinary tract infection) Status: Acute (5) Diabetes mellitus Code(s): E11.9 - TYPE 2 DIABETES MELLITUS WITHOUT COMPLICATIONS Status: Chronic (6) Fracture of right tibia and fibula Code(s): S82.201A - UNSP FRACTURE OF SHAFT OF RIGHT TIBIA, INIT FOR CLOS FX; S82.401A - UNSP FRACTURE OF SHAFT OF RIGHT FIBULA, INIT FOR CLOS FX Status: Chronic - Plan Plan: Med/ surg Infectious disease consult, recommendations appreciated WBC is remains elevated, despite broad spectrum coverage - likely chronic and not patient access representative of acute infectious process Family not interested in aggressive testing including CT with contrast (which she is allergic to and may cause renal failure) ABX per ID 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, Speech recommend thickened liquids - may be cause of persistent WBC count Consult Speech therapy - eval and treat, recommendations appreciated Outpatient urine culture with garza sensitive e.coli - in the paper chart Blood Cx - no growth to date Urine Cx - no growth to date WBC remains elevated, though Afebrile, non toxic appearance Chest xray consistent with early PNA Duo nebs scheduled and PRN Off IV fluids Oral intake of fluids Continue home lasix Long and short acting insulin for glucose control Alert and oriented to her baseline per daughter Daughter can be reached at [phone] Patient is full code per daughter Continue home meds as able GI and DVT PPX
[2019-05-09] MEDS: Vancomycin HCl 500 MG in Sodium Chloride 0.9% 100 ML IVPB SCH (15:48)
[2019-05-09] MEDS: Insulin Glargine 8 UNITS in Pre-Filled Syringe SC SCH (21:45)
[2019-05-10] MEDS: Piperacillin/Tazobactam 2.25 GM in Sodium Chloride 0.9% 100 ML IVPB SCH ×2 (05:19→18:14)
[2019-05-10 06:11] LABS: #Basophils 0.1 thou/uL (0.0-0.2); #Eosinphils 0.7 thou/uL (0.0-0.7); #Lymphocytes 2.7 thou/uL (1.20-3.40); #Monocytes 2.5 thou/uL (0.11-0.59); #Neutrophils 18.8 thou/uL (1.40-6.50); %Basophils 0.4 % (0.0-1.0); %Eosinophils 2.8 % (0.0-10.0); %Lymphocytes 10.8 % (21.0-51.0); %Monocytes 10.1 % (0.0-10.0); %Neutrophils 75.9 % (42.0-75.0); Hemoglobin 7.7 g/dL (12.0-16.0); Mean Corpuscular HGB CONC 29.7 g/dL (32.0-36.0); Mean Corpuscular Hemoglobin 23.1 pg (27.0-31.0); Mean Corpuscular Volume 77.8 fL (78.0-98.0); Platelet Count 724 thou/uL (130-400); RBC Distribution Width 16.3 % (11.5-14.5); Red Blood Cell (RBC) Count 3.35 mill/uL (4.20-5.40); White Blood Cell (WBC) Count 24.8 thou/uL (4.8-10.8)
[2019-05-10 06:29] LABS: Anion Gap 9 mmol/L (10-20); BUN (Urea Nitrogen) 13 mg/dL (9.8-20.1); Calc. Creatinine Clearance 30 mL/min (70-130); Calcium 11.6 mg/dL (7.8-10.44); Carbon Dioxide 26 mmol/L (23-31); Chloride 114 mmol/L (98-107); Estimated GFR-MDRD 46; Glucose 65 mg/dL (83-110); Sodium 146 mmol/L (136-145)
[2019-05-10 06:34] LABS: Potassium 2.7 mmol/L (3.5-5.1)
[2019-05-10] MEDS: metFORMIN 500 MG TAB PO SCH (07:57)
[2019-05-10] MEDS: Gabapentin 300 MG CAP PO SCH ×3 (07:57→22:00)
[2019-05-10] MEDS: Furosemide 20 MG TAB PO SCH (07:57)
[2019-05-10] MEDS: Famotidine 20 MG TAB PO SCH (07:57)
[2019-05-10] MEDS: Enoxaparin Sodium 40 MG/0.4 ML SYRINGE SC SCH (07:58)
--- NOTE | 2019-05-10 10:03 | PDOC.HOSPP ---
- Subjective Subjective: Seen and examined. More somnolent early this morning. Has not eaten breakfast or taken pills yet. Denies pain. Breathing well on room air. - Objective Vital Signs & Weight: Vital Signs (12 hours) Temp Pulse Resp BP Pulse Ox 05/10/19 08:00 92 L 05/10/19 07:00 97.5 F L 78 20 115/71 92 L 05/10/19 04:10 97.5 F L 78 18 114/69 93 L 05/10/19 00:40 98.3 F 89 16 111/63 94 L Weight Admit Weight 119 lb 0.794 oz Weight 119 lb 0.794 oz I&O: 05/09/19 05/10/19 05/11/19 06:59 06:59 06:59 Intake Total 200 1500 Balance 200 1500 Result Diagrams: 05/10/19 05:38 05/10/19 05:38 Additional Labs: Accuchecks 05/10/19 05/10/19 05/10/19 06:48 05:53 05:47 POC Glucose 173 H 54 L* Less than 35 L* 05/09/19 05/09/19 05/09/19 21:38 15:14 11:21 POC Glucose 125 H 122 H 108 Hospitalist ROS - Review of Systems All other systems reviewed; all pertinent +/- noted in HPI/Subj - Medication Medications: Active Medications Generic Name Dose Route Start Last Admin Trade Name Freq PRN Reason Stop Dose Admin Acidophilus 1 gm 05/04/19 09:00 05/09/19 12:00 Floranex PO Not Given DAILY LEE Dextrose/Water 25 gm 05/02/19 09:35 05/10/19 06:10 Dextrose 50% SLOW IVP 25 gm PRN PRN Administration Hypoglycemia Enoxaparin Sodium 40 mg 05/02/19 09:00 05/10/19 07:58 Lovenox SC 40 mg 0900 LEE Administration Famotidine 20 mg 05/02/19 09:00 05/10/19 07:57 Pepcid PO 20 mg DAILY LEE Administration Furosemide 20 mg 05/02/19 10:00 05/10/19 07:57 Lasix PO 20 mg Q2DAYS LEE Administration Gabapentin 300 mg 05/02/19 21:00 05/10/19 08:43 Neurontin PO Not Given BID LEE Dextrose/Water 1,000 mls @ 0 mls/hr 05/02/19 09:35 05/10/19 06:00 D5w IV 1,000 mls .Q0M PRN Administration Hypoglycemia As Directed Piperacillin Sod/Tazobactam 100 mls @ 200 mls/hr 05/03/19 18:00 05/10/19 05: 19 Sod 2.25 gm/ Sodium Chloride IVPB 100 mls Q6HR LEE Administration Insulin Glargine 8 units/ 0.08 mls @ 0 mls/hr 05/06/19 21:00 05/09/19 21:45 Miscellaneous Medication SC 0.08 mls HS LEE Administration Vancomycin HCl 500 mg/ Sodium 100 mls @ 100 mls/hr 05/08/19 13:00 05/09/19 15 :48 Chloride IVPB 100 mls 1300 LEE Administration Insulin Human Regular 0 units 05/02/19 09:35 05/07/19 17:21 Humulin R SC 2 unit .MILD SLIDING SCALE PRN Administration Mild Correctional Scale Metformin HCl 500 mg 05/03/19 09:00 05/10/19 07:57 Glucophage PO 500 mg QAM LEE Administration Phenytoin Sodium 200 mg 05/03/19 09:00 05/07/19 09:43 Dilantin Er PO 200 mg MWF LEE Administration Phenytoin Sodium 100 mg 05/02/19 10:00 05/06/19 09:12 Dilantin Er PO 100 mg TUTHSASU LEE Administration Sertraline HCl 150 mg 05/03/19 09:00 05/10/19 07:57 Zoloft PO 150 mg DAILY LEE Administration - Exam General Appearance: NAD Eye: PERRL ENT: no oropharyngeal lesions, moist mucosa Neck: supple Heart: no gallops, no rubs Heart - other findings: S1 and S2 present Respiratory: CTAB, no rales, no ronchi, normal chest expansion, wheezes ( Chronic scattered wheezing) Gastrointestinal: soft, non-tender, non-distended, normal bowel sounds, no guarding, no rigidity Extremities: no edema Skin: no lesions, no rashes Neurological: CN's grossly intact, no new deficit, speech deficit. negative: vision deficit Neurological - other findings: Weakness from prior CVA at baseline Musculoskeletal: generalized weakness Psychiatric: oriented to person, flat affect Hosp A/P (1) Sepsis Code(s): A41.9 - SEPSIS, UNSPECIFIED ORGANISM Status: Acute (2) Dehydration Code(s): E86.0 - DEHYDRATION Status: Acute (3) Encephalopathy acute Code(s): G93.40 - ENCEPHALOPATHY, UNSPECIFIED Status: Resolved (4) UTI (urinary tract infection) Status: Acute (5) Diabetes mellitus Code(s): E11.9 - TYPE 2 DIABETES MELLITUS WITHOUT COMPLICATIONS Status: Chronic (6) Fracture of right tibia and fibula Code(s): S82.201A - UNSP FRACTURE OF SHAFT OF RIGHT TIBIA, INIT FOR CLOS FX; S82.401A - UNSP FRACTURE OF SHAFT OF RIGHT FIBULA, INIT FOR CLOS FX Status: Chronic - Plan Plan: Med/ surg Infectious disease consult, recommendations appreciated WBC is remains elevated, despite broad spectrum coverage - likely chronic and not installation service representative of acute infectious process Family not interested in aggressive testing including CT with contrast (which she is allergic to and may cause renal failure) ABX per ID 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, Speech recommend thickened liquids - may be cause of persistent WBC count Consult Speech therapy - eval and treat, recommendations appreciated Outpatient urine culture with garza sensitive e.coli - in the paper chart Blood Cx - no growth to date Urine Cx - no growth to date WBC remains elevated, though Afebrile, non toxic appearance Chest xray consistent with early PNA Duo nebs scheduled and PRN Off IV fluids Oral intake of fluids Continue home lasix Long and short acting insulin for glucose control Alert and oriented to her baseline per daughter Daughter can be reached at [phone] Patient is full code per daughter Continue home meds as able Replace electrolytes as needed GI and DVT PPX
[2019-05-10] MEDS ORDERED: Potassium Chloride 40 MEQ in Sodium Chloride 0.9% 250 ML 250 ML IVPB SCH (10:15)
[2019-05-10] MEDS: Floranex Packet PO SCH (11:26)
[2019-05-10 13:41] LABS: Vancomycin, Trough 17.5 ug/mL
[2019-05-10] MEDS ORDERED: 1/2 NS w/KCL 20 mEq 1,000 ML IV SCH (14:15)
[2019-05-10] MEDS: Vancomycin HCl 500 MG in Sodium Chloride 0.9% 100 ML IVPB SCH (16:02)
[2019-05-10] MEDS: Insulin Glargine 8 UNITS in Pre-Filled Syringe SC SCH (22:50)
[2019-05-11] MEDS: Piperacillin/Tazobactam 2.25 GM in Sodium Chloride 0.9% 100 ML IVPB SCH ×2 (00:22→05:10)
[2019-05-11 00:38] VITALS: TEMP 97.4
[2019-05-11 07:05] LABS: #Basophils 0.1 thou/uL (0.0-0.2); #Eosinphils 0.4 thou/uL (0.0-0.7); #Lymphocytes 1.7 thou/uL (1.20-3.40); #Monocytes 1.7 thou/uL (0.11-0.59); %Basophils 0.3 % (0.0-1.0); %Eosinophils 1.6 % (0.0-10.0); %Lymphocytes 6.6 % (21.0-51.0); %Monocytes 6.6 % (0.0-10.0); %Neutrophils 84.9 % (42.0-75.0); Hemoglobin 8.1 g/dL (12.0-16.0); Mean Corpuscular Volume 79.4 fL (78.0-98.0); Mean Platelet Volume 7.1 fL (7.4-10.4); Platelet Count 658 thou/uL (130-400); Red Blood Cell (RBC) Count 3.52 mill/uL (4.20-5.40); White Blood Cell (WBC) Count 25.9 thou/uL (4.8-10.8)
[2019-05-11 07:25] LABS: Anion Gap 10 mmol/L (10-20); BUN (Urea Nitrogen) 12 mg/dL (9.8-20.1); Calc. Creatinine Clearance 30 mL/min (70-130); Calcium 11.9 mg/dL (7.8-10.44); Carbon Dioxide 25 mmol/L (23-31); Chloride 112 mmol/L (98-107); Estimated GFR-MDRD 47; Glucose 144 mg/dL (83-110); Potassium 3.2 mmol/L (3.5-5.1); Sodium 144 mmol/L (136-145)
[2019-05-11 07:27] VITALS: BP 115/55
[2019-05-11 07:42] LABS: Band 2 % (5-11); Eosinophils 1 % (0-10); Hypochromia SLIGHT = 6-15 cells (100X) (0-5/hpf); Lymphocytes 12 % (21-51); MDiff Complete? YES; Microcytosis SLIGHT = 6-15 cells (100X) (0-5/hpf); Monocytes 1 % (0-10); Neutrophil 84 % (42-75); Ovalocytes SLIGHT = 2-5 cells (100X) (0-1/hpf); Platelet Morphology Comment Appears Increased; Polychromasia SLIGHT = 2-3 cells (100X) (0-2/hpf); Target Cells SLIGHT = 2-5 cells (100X) (0-1/hpf)
[2019-05-11] MEDS: metFORMIN 500 MG TAB PO SCH (08:54)
[2019-05-11] MEDS: Famotidine 20 MG TAB PO SCH (08:55)
[2019-05-11] MEDS: Enoxaparin Sodium 40 MG/0.4 ML SYRINGE SC SCH (08:56)
--- NOTE | 2019-05-12 03:02 | DIS ---
DATE OF ADMISSION: 05/01/2019 DATE OF DISCHARGE: 05/11/2019 REASON FOR HOSPITALIZATION: Dehydration and urinary tract infection. SIGNIFICANT FINDINGS: The patient was found to have worsening encephalopathy/confusion with acute urinary tract infection. The patient was placed on broad-spectrum antibiotics, which were adjusted appropriately by Infectious Disease specialist with resolution of symptoms. CONDITION ON DISCHARGE: Stable. SPECIFIC INSTRUCTIONS FOR THE PATIENT/FAMILY: 1. The patient is recommended to take all medications as directed, to be re-evaluated by primary care physician in the outpatient clinic. 2. The patient is recommended to follow up with primary care physician in the next 5 to 7 days. 3. The patient is recommended to follow up with neurologist and further evaluation on dementia and cerebrovascular accident prevention strategies. 4. The patient is recommended to adjust categorization status and have advanced directives on file. 5. The patient is recommended to return to acute care hospital immediately if signs or symptoms return, worsen, or any other new symptoms occur. DISCHARGE MEDICATIONS: Please see full discharge medication list for details. No new medications were given and the patient finished a full course of IV antibiotics in the acute care hospital. HOSPITAL COURSE: Ms. 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 The patient does have chronic urinary tract infection. She has chronic aspiration and easily gets pulmonary infections, patient has osteoarthritis, patient has sacral decubitus ulcer on admission. The patient was admitted with dehydration, sepsis on admission and found to have acute urinary tract infection. Infectious Disease specialist was consulted, please see full consultation and progress notes for details. The patient had antibiotics adjusted appropriately by Infectious Disease specialist. The patient did have persistent elevation of her WBC count, however, it does not seem to be correlating with her clinical improvement or her infectious picture per Infectious Disease specialist. The patient's WBC count remains elevated, however, the patient clinically has no fever, her urinary tract infection symptoms have resolved, her pulmonary symptoms have resolved, and the patient clinically is at her baseline functioning level status and she is eating and drinking without difficulties. A discussion was had with the family on what they would like to do to further evaluate persistently elevated WBC count. An ultrasound of the lower extremity was performed as deep venous thrombosis can cause leukocytosis, please see full ultrasound study for details. There is no acute deep venous thrombosis in the lower extremity. Discussion was had concerning CT scan of the head to toe and IV contrast administration, with the patient's allergy to IV contrast and family stating that they do not want further aggressive tight measures. They elected to defer further workup at this time and they will follow up with primary care physician on persistently elevated WBC count. In addition to other causes of persistently elevated WBC count, there was considered her chronic aspiration and the patient was evaluated by Speech Therapy, who recommended thickened liquids of nectar consistency and a pureed diet. Other considerations for persistently elevated WBC count to include cancers such as colon cancer and the patient's daughter states that she does have a history of polyps. With the patient's advanced age at 89 years old, further inpatient workup with colonoscopy was not indicated and the patient's family were not interested in invasive surgical interventions. The patient was recommended safe for discharge by Infectious Disease specialist and as she completed a full course of IV antibiotics, no oral antibiotics were needed on discharge. The patient recommended to follow up with primary care physician in the outpatient setting in the next 5 to 7 days. The patient is recommended to follow up with neurologist for chronic cerebrovascular accident care in addition to dementia workup. The patient is recommended to follow up with Infectious Disease specialist in the next 2 to 4 weeks. The patient is recommended to take all medications as directed, to be re-evaluated by primary care physician. The patient recommended to return to acute care hospital immediately if signs or symptoms return, worsen, or any other new symptoms occur. Greater than 41 minutes spent coordinating care and discharge process for this patient. Job ID: [id number]
== END 2019-05-11 11:44 | disposition home health service (06) | DRG 871 ==
LOC: ERS 13:44 → SJJU 16:19
PROVIDERS: ADMIT Internal Medicine; ATTEND Internal Medicine
DX: A41.9 Sepsis, unspecified organism (principal); G93.41 Metabolic encephalopathy; N39.0 Urinary tract infection, site not specified; I69.359 Hemiplegia and hemiparesis following cerebral infarction affecting unspecified side; E11.9 Type 2 diabetes mellitus without complications; L89.322 Pressure ulcer of left buttock, stage 2; E86.0 Dehydration; B96.20 Unspecified Escherichia coli [E. coli] as the cause of diseases classified elsewhere; I48.91 Unspecified atrial fibrillation; D50.9 Iron deficiency anemia, unspecified; M19.90 Unspecified osteoarthritis, unspecified site; M84.461D Pathological fracture, right tibia, subsequent encounter for fracture with routine healing; M84.463D Pathological fracture, right fibula, subsequent encounter for fracture with routine healing; F01.50 Vascular dementia, unspecified severity, without behavioral disturbance, psychotic disturbance, mood disturbance, and anxiety; D72.829 Elevated white blood cell count, unspecified; Z88.5 Allergy status to narcotic agent; Z88.8 Allergy status to other drugs, medicaments and biological substances; Z91.041 Radiographic dye allergy status; Z90.49 Acquired absence of other specified parts of digestive tract; I69.328 Other speech and language deficits following cerebral infarction; I69.322 Dysarthria following cerebral infarction; Z79.899 Other long term (current) drug therapy; Z79.4 Long term (current) use of insulin
CPT/HCPCS: 36415; 36416; 71045; 80048; 80202; 85025; 87040; 87086; 93970; 99285; J0696; J1650; J1815; J2543; J3370; J3480; J3490; J7050